=== PATIENT | female | born 1950 | race Hispanic/Latino ===

== ENCOUNTER 2016-10-03 15:05 | Inpatient (IN) | payer MEDICAID, MEDICARE ==
--- NOTE | 2016-10-03 15:33 | Emergency Department Report ---
HPI - General Time Seen by Provider: 10/03/16 15:16 - HPI HPI: This is a 66-year-old Afro-[place] female presents to the emergency department by EMS from [facility] with complaint of possible stroke. Patient is been having right-sided weakness that she says has been going on since this morning around 8 AM. It started mostly with the right lower extremity but since that time she has had almost complete right-sided paralysis. Patient has a past medical history of hypertension, diabetes and schizophrenia. She is currently awake and alert, able 3. She didn't receive anything and did not take anything for symptoms prior to presentation. No recent travel. She denies any headache, vision change, chest pain, shortness of breath or any slurred speech. ED Past Medical Hx - Past Medical History Hx Hypertension: Yes Hx Heart Attack/AMI: No Hx Congestive Heart Failure: No Hx Diabetes: No Hx Psychiatric Treatment: Yes (schizophrenia per EMS) Hx Asthma: No Hx COPD: No Hx HIV: No - Surgical History Additional Surgical History: BRANDIE - Social History Smoking Status: Never Smoker - Medications Home Medications: Home Medications Medication Instructions Recorded Confirmed Last Taken Type Benztropine [Cogentin] 1 mg PO BID tablet 12/19/15 10/03/16 Unknown Rx Acetaminophen [Tylenol] 650 mg PO Q4HR PRN 10/03/16 10/03/16 Unknown History Ibuprofen [Motrin] 600 mg PO Q8H PRN 10/03/16 10/03/16 Unknown History Magnesium Hydroxide [[place]' 30 ml PO Q24H PRN 10/03/16 10/03/16 Unknown History Milk of Magnesia] Novolin R 1 unit SQ 1XW 10/03/16 10/03/16 Unknown History Zolpidem [Ambien] 10 mg PO QHS 10/03/16 10/03/16 Unknown History fluPHENAZine DECANOATE 37.5 mg IM Q14D 10/03/16 10/03/16 Unknown History [fluPHENAZine Decanoate] metFORMIN [Glucophage] 500 mg PO QDAY 10/03/16 10/03/16 Unknown History traMADol [Ultram] 50 mg PO Q6HR PRN 10/03/16 10/03/16 Unknown History ED Review of Systems ROS: Stated complaint: POSSIBLE CVA Other details as noted in HPI Comment: All other systems reviewed and negative Constitutional: weakness. denies: chills, fever Eyes: denies: eye pain, eye discharge, vision change ENT: denies: ear pain, throat pain Respiratory: denies: cough, shortness of breath, wheezing Cardiovascular: denies: chest pain, palpitations Gastrointestinal: denies: abdominal pain, nausea, diarrhea Genitourinary: denies: urgency, dysuria, discharge Musculoskeletal: denies: back pain, joint swelling, arthralgia Skin: denies: rash, lesions Neurological: denies: headache, weakness, paresthesias Physical Exam - Physical Exam Physical Exam: GENERAL: The patient is well-developed well-nourished. HEENT: Normocephalic. Atraumatic. Extraocular motions are intact. Patient has moist mucous membranes. Pupils equal reactive to light bilaterally. No nystagmus. No facial symmetry. Tongue is midline. NECK: Supple. Trachea is midline. CHEST/LUNGS: Clear to auscultation. There is no respiratory distress noted. HEART/CARDIOVASCULAR: Regular. There is no tachycardia. There is no gallop rub or murmur. ABDOMEN: Abdomen is soft, nontender. Patient has normal bowel sounds. There is no abdominal distention. SKIN: There is no rash. There is no edema. There is no diaphoresis. NEURO: The patient is awake, alert, and oriented. The patient is cooperative. There are no sensory deficits. Patient has right-sided hemiparesis. The patient has normal speech. MUSCULOSKELETAL: There is no tenderness or deformity. Radial pulse +2 over 4 bilaterally. Cap refill less than 2 seconds. There is no evidence of acute injury. ED Course - Consultations Consultation #1: We spoke with the telemedicine neurologist regarding this patient's presentation. Based on the patient being awake and alert and saying that her symptoms began at 8 AM this morning, she does not fall into any TPA window and therefore he recommends no TPA administration but instead just a "stroke workup " and admission to the hospital. 10/03/16 15:57 ED Medical Decision Making - Lab Data Result diagrams: 10/03/16 15:23 10/03/16 15:23 - EKG Data -: EKG Interpreted by Me EKG shows normal: sinus rhythm, axis, intervals, QRS complexes, ST-T waves ( nonspecific ST-T changes) Rate: normal - EKG Data When compared to previous EKG there are: previous EKG unavailable Interpretation: nonspecific ST-T wave gayle - Radiology Data Radiology results: report reviewed, image reviewed interpreted by me: Chest x-ray did not show any acute process. Heart is normal shape and size. No effusions. No pneumothorax. No signs of pneumonia seen. CT of the head does not show any acute process including no hemorrhage, mass, shift, diffuse edema or skull fracture. - Medical Decision Making 66-year-old female presents with right-sided weakness and hemiparesis that started earlier this morning. While the facility said to EMS that the symptoms began just prior to presentation, the patient is currently awake and alert and appropriate and says that she knows that started earlier this morning. For that reason, after speaking with the telemedicine neurologist, the patient is not a TPA candidate. However she does need admission for further evaluation and probable MRI and carotid ultrasounds. Patient's labs are mostly unremarkable other than some mild hyperglycemia and certainly do not show the etiology of the patient's symptoms. Patient will be admitted to the hospital and has been accepted by Dr. Nicholas. - Differential Diagnosis CVA, TIA, brain bleed, metabolic syndrome Critical Care Time: No Critical care attestation.: If time is entered above; I have spent that time in minutes in the direct care of this critically ill patient, excluding procedure time. ED Disposition Clinical Impression: Accelerated hypertension CVA (cerebral vascular accident) Qualifiers: CVA mechanism: unspecified Qualified Code(s): I63.9 - Cerebral infarction, unspecified Diabetes Qualifiers: Diabetes mellitus type: type 2 Diabetes mellitus complication status: with hyperglycemia Disposition: OP ADMITTED IP TO THIS HOSP Is pt being admited?: Yes Condition: Fair Time of Disposition: 18:35
--- NOTE | 2016-10-03 15:43 | Cat Scan Report ---
Cranial CT without contrast. History: Acute stroke protocol. Findings: Comparison is made to the previous study on December 07, 2015. There is no evidence of acute hemorrhage or infarct. Involutional changes are stable. The ventricles are slightly prominent but unchanged. There are no masses or extra-axial collections. The posterior fossa is unremarkable. The calvarium is intact. Impression: No acute findings or interval changes since December 07, 2015. Comment: These findings were given by telephone to the emergency room physician at 3:40 PM on October 03, 2016.
[2016-10-03 15:45] LABS: Basophils % (Auto) 1.4 % (0.0-1.8); Eosinophils % (Auto) 2.5 % (0.0-4.3); Hematocrit 38.9 % (30.3-42.9); Hemoglobin 12.3 gm/dl (10.1-14.3); Mean Corpuscular HGB Conc 32 % (30-34); Mean Corpuscular Volume 82 fl (79-97); Platelet Count 391 K/mm3 (140-440); Red Blood Count 4.76 M/mm3 (3.65-5.03); Red Cell Distribution Width 16.9 % (13.2-15.2); White Blood Count 9.1 K/mm3 (4.5-11.0)
[2016-10-03 15:48] LABS: Mean Corpuscular Hemoglobin 26 pg (28-32)
--- NOTE | 2016-10-03 15:59 | Admit Criteria Form ---
Admission Criteria Documentation: STROKE: ISCHEMIC Clinical Indications for Admission to Inpatient Care (Place 'X' for any and all applicable criteria): Admission is indicated for ANY ONE of the following(1)(2)(3)(4): [X ]I. Acute stroke Extended stay beyond goal length of stay may be needed for(1)(2) [ ]a) Major deficit or clinical deterioration [ ]b) Hospital-acquired infection (eg, urinary tract infection, pneumonia) [ ]c) Embolic cause of stroke [ ]d) Venous thromboembolism(9) [ ]e) Seizures [ ]f) Bleeding (eg, cerebral) [ ]g) Increased intracranial pressure [ ]h) Comorbidities [ ]i) Surgical intervention The original [facility] content created by [employer] has been revised. The portions of the content which have been revised are identified through the use of italic text or in bold, and [facility] has neither reviewed nor approved the modified material. All other unmodified content is copyright [facility]. Please see references footnoted in the original [facility] edition 2016 Admission Criteria Met: Yes
[2016-10-03 16:01] LABS: INR 0.9 (0.87-1.13)
[2016-10-03 16:02] LABS: Partial Thromboplastin Time 32.5 Sec. (24.2-36.6)
--- NOTE | 2016-10-03 16:15 | History and Physical Report ---
History of Present Illness Chief complaint: I cant talk right History of present illness: 66 YO Female NHR at [facility] with HTN, DM, Schizophrenia, Debility presents to ED for evaluation. Pt states that she has experienced right -sided weakness that was present when she awoke around 0800 hrs. Pt states that she cannot talk like she normally does. Pt denies fever, Chills, CP, Palpitation, Trauma, NVD, fall, syncope, seizure, headache, recent ill contacts. Past History Past Medical History: diabetes, hyperthyroidism Past Surgical History: No surgical history, Other (reviewed) Social history: single. denies: smoking, alcohol abuse, prescription drug abuse Family history: diabetes, hypertension Medications and Allergies Allergies Allergy/AdvReac Type Severity Reaction Status Date / Time No Known Allergies Allergy Unverified 10/03/16 15:16 Home Medications Medication Instructions Recorded Confirmed Last Taken Type Benztropine [Cogentin] 1 mg PO BID tablet 12/19/15 10/03/16 Unknown Rx Acetaminophen [Tylenol] 650 mg PO Q4HR PRN 10/03/16 10/03/16 Unknown History Ibuprofen [Motrin] 600 mg PO Q8H PRN 10/03/16 10/03/16 Unknown History Magnesium Hydroxide [[place]' 30 ml PO Q24H PRN 10/03/16 10/03/16 Unknown History Milk of Magnesia] Novolin R 1 unit SQ 1XW 10/03/16 Unknown History Zolpidem [Ambien] 10 mg PO QHS 10/03/16 10/03/16 Unknown History fluPHENAZine DECANOATE 37.5 mg IM Q14D 10/03/16 10/03/16 Unknown History [fluPHENAZine Decanoate] metFORMIN [Glucophage] 500 mg PO QDAY 10/03/16 10/03/16 Unknown History traMADol [Ultram] 50 mg PO Q6HR PRN 10/03/16 10/03/16 Unknown History Review of Systems All systems: negative Neurological: weakness, gait dysfunction, motor disturbance Exam - Constitutional Vitals: Temp Pulse Resp BP Pulse Ox 97.4 F L 83 18 207/99 10/03/16 15:16 10/03/16 15:16 10/03/16 15:16 10/03/16 15:16 General appearance: Present: mild distress - EENT Eyes: Present: PERRL ENT: hearing intact, clear oral mucosa - Neck Neck: Present: supple, normal ROM - Respiratory Respiratory effort: normal Respiratory: bilateral: CTA - Cardiovascular Heart Sounds: Present: S1 & S2. Absent: rub, click - Extremities Extremities: pulses symmetrical, No edema Peripheral Pulses: within normal limits - Abdominal General gastrointestinal: Present: soft, non-tender, non-distended, normal bowel sounds Female genitourinary: Present: normal - Integumentary Integumentary: Present: clear, warm, dry - Musculoskeletal Musculoskeletal: right sided weakness - Psychiatric Psychiatric: cooperative - Neurologic Neurologic: CNII-XII intact, no focal deficits, no moves all extremities, no gait normal Results - Labs CBC & Chem 7: 10/03/16 15:23 10/03/16 15:23 Labs: Abnormal lab results 10/03/16 10/03/16 Range/Units 15:23 15:23 MCH 26 L (28-32) pg RDW 16.9 H (13.2-15.2) % [place] % (Auto) 9.7 H (0.0-7.3) % [place] # 0.9 H (0.0-0.8) K/mm3 PT 12.1 L (12.2-14.9) Sec. Assessment and Plan - Patient Problems (1) CVA (cerebral vascular accident) Current Visit: Yes Status: Acute Qualifiers: CVA mechanism: C Precerebral and cerebral artery: P Laterality of affected vessel: L Plan to address problem: Stroke protocol: Antiplatelet therapy, statin, MRI, MRA, Echo, carotid doppler, PT/OT/Speech therapy (2) Accelerated hypertension Current Visit: Yes Status: Acute Plan to address problem: monitor bp q shift, continue current therapy, goal systolic overnight 160-185. (3) Diabetes Current Visit: No Status: Chronic Qualifiers: Diabetes mellitus type: type 2 Diabetes mellitus complication status: D Diabetes mellitus complication detail: D Diabetic retinopathy severity: D Proliferative retinopathy type: P Diabetes mellitus macular edema: D Diabetes mellitus senior living insulin use: D Laterality: L Chronic kidney disease stage: C Plan to address problem: ADA diet, insulin, accu check (4) Physical deconditioning Current Visit: No Status: Chronic Plan to address problem: Pt consulted, (5) Schizophrenia Current Visit: No Status: Chronic Qualifiers: Schizophrenia type: unspecified Qualified Code(s): F20.9 - Schizophrenia, unspecified Plan to address problem: curently stable, continue current therapy (6) DVT prophylaxis Current Visit: No Status: Acute
[2016-10-03] MEDS ORDERED: PHENERGAN PR PRN (16:18)
[2016-10-03] MEDS ORDERED: TYLENOL PO PRN ×3 (16:18→17:08)
[2016-10-03] MEDS ORDERED: SODIUM CHLORIDE FLUSH SYRINGE 10 ML IV PRN (16:18)
[2016-10-03] MEDS ORDERED: MILK OF MAGNESIA PO PRN ×3 (16:18→17:08)
[2016-10-03] MEDS ORDERED: DULCOLAX PR PRN ×2 (16:18)
[2016-10-03] MEDS ORDERED: REGLAN PO PRN (16:18)
[2016-10-03] MEDS ORDERED: ZOFRAN IV PRN ×2 (16:18)
[2016-10-03 16:27] LABS: Creatine Kinase MB 2.6 ng/mL (0.0-4.0)
[2016-10-03 16:29] LABS: Alanine Aminotransferase 16 units/L (7-56); Albumin 3.8 g/dL (3.9-5); Alkaline Phosphatase 156 units/L (35-129); Anion Gap 19 mmol/L; BUN/Creatinine Ratio 11.11; Bilirubin,Total < 0.2 mg/dL (0.1-1.2); Blood Urea Nitrogen 10 mg/dL (7-17); Carbon Dioxide 24 mmol/L (22-30); Creatine Kinase 93 units/L (30-135); Glucose 204 mg/dL (65-100); Potassium 4.2 mmol/L (3.6-5.0); Sodium 141 mmol/L (137-145); Total Protein 7.6 g/dL (6.3-8.2)
[2016-10-03 16:31] LABS: Urine Drugs of Abuse Note Disclamer
[2016-10-03 16:39] LABS: Bilirubin,Urine NEG (Negative); Blood,Urine NEG (Negative); Ketones,Urine NEG (Negative); Leukocyte Esterase,Urine NEG (Negative); Nitrite,Urine NEG (Negative); Protein,Urine <15 mg/dL mg/dL (Negative); Urobilinogen,Urine < 2.0 mg/dL (<2.0)
[2016-10-03] MEDS ORDERED: PROLIXIN DECANOATE IM SCH (18:00)
[2016-10-03 19:14] LABS: Creatine Kinase MB 2.5 ng/mL (0.0-4.0)
[2016-10-03 19:15] LABS: Creatine Kinase 88 units/L (30-135)
[2016-10-03] MEDS: COGENTIN PO SCH (21:46)
[2016-10-03] MEDS: ZOCOR PO SCH (21:46)
[2016-10-03] MEDS: MOTRIN PO PRN (21:46)
[2016-10-03] MEDS: AMBIEN PO SCH (21:46)
[2016-10-03] MEDS: ULTRAM PO PRN (23:44)
--- NOTE | 2016-10-04 08:49 | XRay Report ---
AP CHEST: HISTORY: CVA AP view of the chest demonstrates a normal mediastinal and cardiac contour with clear lungs and normal bony and soft tissue structures. Bibasilar atelectatic changes have resolved since 11/20/15. IMPRESSION: Unremarkable AP chest.
[2016-10-04] MEDS: ASPIRIN PO SCH (09:13)
[2016-10-04] MEDS: PLAVIX PO SCH (09:13)
--- NOTE | 2016-10-04 12:53 | Progress Note ---
Assessment and Plan Assessment and plan: 66 years old female with hypertension, diabetes, psychiatric disorder brought to ER from [facility] for right-sided weakness 1. CVA suspected CT head showed no acute findings or interval changes ECHO normal Carotid Doppler with < 50% stenosis right, 50-75% left Brain MRI/A obtained, results pending Started on aspirin and statin PT/OT/ST 2. Hyperlipidemia LDL 190 Will increase Zocor dose 3. HTN BP 130-160s Will monitor for now and allow permissive hypertension in case of stroke 4. DM Hemoglobin A1c 8.3 Accu-Cheks and SSI Will discuss long acting insulin need 5. Schizophrenia Continue home meds 5. Debility Physical therapy to evaluate and assess needs 6. DVT/GI prophylaxis History Interval history: c/o bilat leg pain , inability to walk properly and need of a wheelchair Hospitalist Physical - Physical exam Narrative exam: - Constitutional Vitals: Temp Pulse Resp BP Pulse Ox 98.1 F 92 H 20 168/92 99 10/04/16 06:28 10/04/16 10:00 10/04/16 06:28 10/04/16 06:28 10/04/16 10:00 General appearance: Present: no acute distress - EENT Eyes: Present: PERRL, EOM intact. Absent: scleral icterus, conjunctival injection ENT: clear oral mucosa, edentulous - Neck Neck: Present: supple, normal ROM. Absent: masses or JVD - Respiratory Respiratory effort: normal Respiratory: bilateral: CTA, negative: rhonchi, wheezing - Cardiovascular Rhythm: regular Heart Sounds: Present: S1 & S2. Absent: systolic murmur - Extremities Extremities: no ischemia - Abdominal General gastrointestinal: soft, non-tender, non-distended, normal bowel sounds - Integumentary Integumentary: Present: warm, dry. Absent: jaundice, rash - Neurologic Neurologic: moves all extremities - Constitutional Vitals: Temp Pulse Resp BP Pulse Ox 98.1 F 92 H 20 168/92 99 10/04/16 06:28 10/04/16 10:00 10/04/16 06:28 10/04/16 06:28 10/04/16 01:26 Results - Labs CBC & Chem 7: 10/03/16 15:23 10/03/16 15:23 Labs: Laboratory Last Values WBC 9.1 K/mm3 (4.5-11.0) 10/03/16 15: RBC 4.76 M/mm3 (3.65-5.03) 10/03/16 15: Hgb 12.3 gm/dl (10.1-14.3) 10/03/16 15: Hct 38.9 % (30.3-42.9) 10/03/16 15: MCV 82 fl (79-97) 10/03/16: MCH 26 pg (28-32) L 10/03/16: MCHC 32 % (30-34) 10/03/16: RDW 16.9 % (13.2-15.2) H 10/03/16: Plt Count 391 K/mm3 (140-440) 10/03/16: Lymph % (Auto) 27.4 % (13.4-35.0) 10/03/16 15: [place] % (Auto) 9.7 % (0.0-7.3) H 10/03/16: Eos % (Auto) 2.5 % (0.0-4.3) 10/03/16: Baso % (Auto) 1.4 % (0.0-1.8) 10/03/16: Lymph # 2.5 K/mm3 (1.2-5.4) 10/03/16 15: [place] # 0.9 K/mm3 (0.0-0.8) H 10/03/16 15: Eos # 0.2 K/mm3 (0.0-0.4) 10/03/16: Baso # 0.1 K/mm3 (0.0-0.1) 10/03/16: Seg Neutrophils % 59.0 % (40.0-70.0) 10/03/16: Seg Neutrophils # 5.4 K/mm3 (1.8-7.7) 10/03/16: PT 12.1 Sec. (12.2-14.9) L 10/03/16: INR 0.90 (0.87-1.13) 10/03/16: APTT 32.5 Sec. (24.2-36.6) 04/13/17 15:23 Thrombin Time 16.9 Sec. (15.1-19.6) 10/03/16 15:23 Sodium 141 mmol/L (137-145) 10/03/16 15:23 Potassium 4.2 mmol/L (3.6-5.0) 10/03/16 15:23 Chloride 102.0 mmol/L (98-107) 10/03/16 15:23 Carbon Dioxide 24 mmol/L (22-30) 10/03/16 15:23 Anion Gap 19 mmol/L 10/03/16 15:23 BUN 10 mg/dL (7-17) 10/03/16 15:23 Creatinine 0.9 mg/dL (0.7-1.2) 10/03/16 15:23 Estimated GFR > 60 ml/min 10/03/16 15:23 BUN/Creatinine Ratio 11.11 % 10/03/16 15:23 Glucose 204 mg/dL (65-100) H 10/03/16 15:23 POC Glucose 139 (70-105) H 10/04/16 07:47 Hemoglobin A1c 8.3 % (4-6) H 10/03/16 15:20 Calcium 9.0 mg/dL (8.4-10.2) 10/03/16 15:23 Total Bilirubin < 0.2 mg/dL (0.1-1.2) 10/03/16 15:23 AST 17 units/L (5-40) 10/03/16 15:23 ALT 16 units/L (7-56) 10/03/16 15:23 Alkaline Phosphatase 156 units/L (35-129) H 10/03/16 15:23 Total Creatine Kinase 88 units/L (30-135) 10/03/16 18:36 CK-MB (CK-2) 2.5 ng/mL (0.0-4.0) 10/03/16 18:36 CK-MB (CK-2) Rel Index 2.8 (0-4) 10/03/16 18:36 Troponin T < 0.010 ng/mL (0.00-0.029) 10/03/16 18:36 Total Protein 7.6 g/dL (6.3-8.2) 10/03/16 15:23 Albumin 3.8 g/dL (3.9-5) L 10/03/16 15:23 Albumin/Globulin Ratio 1.0 % 10/03/16 15:23 Triglycerides 190 mg/dL (2-149) H 10/03/16 15:20 Cholesterol 276 mg/dL (50-199) H 10/03/16 15:20 LDL Cholesterol Direct 190 mg/dL (50-130) H 10/03/16 15:20 HDL Cholesterol 48 mg/dL (40-59) 10/03/16 15:20 Cholesterol/HDL Ratio 5.75 % 10/03/16 15:20 Urine Color Yellow (Yellow) 10/03/16 16:26 Urine Turbidity Clear (Clear) 10/03/16 16:26 Urine pH 6.0 (5.0-7.0) 10/03/16 16:26 Ur Specific [place] 1.016 (1.003-1.030) 10/03/16 16:26 Urine Protein <15 mg/dl mg/dL (Negative) 10/03/16 16:26 Urine Glucose (UA) Neg mg/dL (Negative) 10/03/16 16:26 Urine Ketones Neg mg/dL (Negative) 10/03/16 16:26 Urine Blood Neg (Negative) 10/03/16 16:26 Urine Nitrite Neg (Negative) 10/03/16 16:26 Urine Bilirubin Neg (Negative) 10/03/16 16:26 Urine Urobilinogen < 2.0 mg/dL (<2.0) 10/03/16 16:26 Ur Leukocyte Esterase Neg (Negative) 10/03/16 16:26 Urine WBC (Auto) 1.0 /HPF (0.0-6.0) 10/03/16 16:26 Urine RBC (Auto) 2.0 /HPF (0.0-6.0) 10/03/16 16:26 Urine Opiates Screen Presumptive negative 10/03/16 16:26 Urine Methadone Screen Presumptive negative 10/03/16 16:26 Ur Barbiturates Screen Presumptive negative 10/03/16 16:26 Ur Phencyclidine Scrn Presumptive negative 10/03/16 16:26 Ur Amphetamines Screen Presumptive negative 10/03/16 16:26 U Benzodiazepines Scrn Presumptive negative 10/03/16 16:26 Urine Cocaine Screen Presumptive negative 10/03/16 16:26 U Marijuana (THC) Screen Presumptive negative 10/03/16 16:26 Drugs of Abuse Note Disclamer 10/03/16 16:26 Blood Type O POSITIVE 10/03/16 15:23 Antibody Screen Negative 10/03/16 15:23
--- NOTE | 2016-10-04 13:59 | Magnetic Resonance Report ---
MR scan of brain: History: Stroke. Technique: Multiplanar, multisequence images were obtained without contrast injection. Findings: 4 mm focal area of restricted diffusion noted in the left basal ganglia adjacent to thalamus. 2 mm focal area of restricted diffusion noted in the right posterior temporal region. No evidence of hemorrhage. No extra-axial fluid collection. Normal brainstem and cerebellum. Normal sinuses and mastoid air cells. Impression: Focal area restricted diffusion in left basal ganglia and the right posterior temporal region suggestive acute ischemia. No evidence of hemorrhage.
--- NOTE | 2016-10-04 14:01 | Magnetic Resonance Report ---
MRA of brain: History: Stroke. Findings: The vessels of [place] are well visualized and patent. Mild atherosclerotic changes are noted in the right and left middle cerebral and the posterior cerebral vessels. No significant stenoses. No evidence of occlusion or aneurysm. No evidence of dissection. Codominant vertebral arteries with normal basilar artery. Impression: No evidence of stenosis or occlusion or aneurysm.
[2016-10-04] MEDS: COGENTIN PO SCH ×3 (14:51→21:43)
[2016-10-04] MEDS: ULTRAM PO PRN ×2 (15:16→21:42)
--- NOTE | 2016-10-04 17:37 | Progress Note ---
Assessment and Plan Assessment and plan: 66 years old female with hypertension, diabetes, psychiatric disorder brought to ER from [facility] for right-sided weakness 1. CVA suspected CT head showed no acute findings or interval changes ECHO normal Carotid Doppler with < 50% stenosis right, 50-75% left Brain MRI/A obtained, results pending Started on aspirin and statin PT/OT/ST 2. Hyperlipidemia LDL 190 Will increase Zocor dose 3. HTN BP 130-160s Will monitor for now and allow permissive hypertension in case of stroke 4. DM Hemoglobin A1c 8.3 Accu-Cheks and SSI Will discuss long acting insulin need 5. Schizophrenia Continue home meds 5. Debility Physical therapy to evaluate and assess needs 6. DVT/GI prophylaxis History Interval history: c/o bilat leg pain , inability to walk properly and need of a wheelchair Hospitalist Physical - Constitutional Vitals: Temp Pulse Resp BP Pulse Ox 98.1 F 92 H 20 168/92 99 10/04/16 06:28 10/04/16 10:00 10/04/16 06:28 10/04/16 06:28 10/04/16 10:00 General appearance: Present: no acute distress - EENT Eyes: Present: PERRL, EOM intact. Absent: scleral icterus, conjunctival injection ENT: clear oral mucosa, edentulous - Neck Neck: Present: supple, normal ROM. Absent: masses or JVD - Respiratory Respiratory effort: normal Respiratory: bilateral: CTA, negative: rhonchi, wheezing - Cardiovascular Rhythm: regular Heart Sounds: Present: S1 & S2. Absent: systolic murmur - Extremities Extremities: no ischemia - Abdominal General gastrointestinal: soft, non-tender, non-distended, normal bowel sounds - Integumentary Integumentary: Present: warm, dry. Absent: jaundice, rash - Neurologic Neurologic: moves all extremities Results - Labs CBC & Chem 7: 10/03/16 15:23 10/03/16 15:23 Labs: Laboratory Last Values WBC 9.1 K/mm3 (4.5-11.0) 10/03/16 15:23 RBC 4.76 M/mm3 (3.65-5.03) 10/03/16 15:23 Hgb 12.3 gm/dl (10.1-14.3) 10/03/16 15:23 Hct 38.9 % (30.3-42.9) 10/03/16 15: MCV 82 fl (79-97) 10/03/16 15: MCH 26 pg (28-32) L 10/03/16: MCHC 32 % (30-34) 10/03/16 15: RDW 16.9 % (13.2-15.2) H 10/03/16 15: Plt Count 391 K/mm3 (140-440) 10/03/16 15: Lymph % (Auto) 27.4 % (13.4-35.0) 10/03/16 15: [place] % (Auto) 9.7 % (0.0-7.3) H 10/03/16: Eos % (Auto) 2.5 % (0.0-4.3) 10/03/16: Baso % (Auto) 1.4 % (0.0-1.8) 10/03/16: Lymph # 2.5 K/mm3 (1.2-5.4) 10/03/16: [place] # 0.9 K/mm3 (0.0-0.8) H 10/03/16 15: Eos # 0.2 K/mm3 (0.0-0.4) 10/03/16: Baso # 0.1 K/mm3 (0.0-0.1) 10/03/16 15: Seg Neutrophils % 59.0 % (40.0-70.0) 10/03/16: Seg Neutrophils # 5.4 K/mm3 (1.8-7.7) 10/03/16: PT 12.1 Sec. (12.2-14.9) L 10/03/16: INR 0.90 (0.87-1.13) 10/03/16: APTT 32.5 Sec. (24.2-36.6) 10/03/16: Thrombin Time 16.9 Sec. (15.1-19.6) 10/03/16 15: Sodium 141 mmol/L (137-145) 10/03/16: Potassium 4.2 mmol/L (3.6-5.0) 10/03/16:23 Chloride 102.0 mmol/L (98-107) 10/03/16 15:23 Carbon Dioxide 24 mmol/L (22-30) 10/03/16 15:23 Anion Gap 19 mmol/L 10/03/16 15:23 BUN 10 mg/dL (7-17) 10/03/16 15:23 Creatinine 0.9 mg/dL (0.7-1.2) 10/03/16 15:23 Estimated GFR > 60 ml/min 10/03/16 15:23 BUN/Creatinine Ratio 11.11 % 10/03/16 15:23 Glucose 204 mg/dL (65-100) H 10/03/16 15:23 POC Glucose 139 (70-105) H 10/04/16 07:47 Hemoglobin A1c 8.3 % (4-6) H 10/03/16 15:20 Calcium 9.0 mg/dL (8.4-10.2) 10/03/16 15:23 Total Bilirubin < 0.2 mg/dL (0.1-1.2) 10/03/16 15:23 AST 17 units/L (5-40) 10/03/16 15:23 ALT 16 units/L (7-56) 10/03/16 15:23 Alkaline Phosphatase 156 units/L (35-129) H 10/03/16 15:23 Total Creatine Kinase 88 units/L (30-135) 10/03/16 18:36 CK-MB (CK-2) 2.5 ng/mL (0.0-4.0) 10/03/16 18:36 CK-MB (CK-2) Rel Index 2.8 (0-4) 10/03/16 18:36 Troponin T < 0.010 ng/mL (0.00-0.029) 10/03/16 18:36 Total Protein 7.6 g/dL (6.3-8.2) 10/03/16 15:23 Albumin 3.8 g/dL (3.9-5) L 10/03/16 15:23 Albumin/Globulin Ratio 1.0 % 10/03/16 15:23 Triglycerides 190 mg/dL (2-149) H 10/03/16 15:20 Cholesterol 276 mg/dL (50-199) H 10/03/16 15:20 LDL Cholesterol Direct 190 mg/dL (50-130) H 10/03/16 15:20 HDL Cholesterol 48 mg/dL (40-59) 10/03/16 15:20 Cholesterol/HDL Ratio 5.75 % 10/03/16 15:20 Urine Color Yellow (Yellow) 10/03/16 16:26 Urine Turbidity Clear (Clear) 10/03/16 16:26 Urine pH 6.0 (5.0-7.0) 10/03/16 16:26 Ur Specific [place] 1.016 (1.003-1.030) 10/03/16 16:26 Urine Protein <15 mg/dl mg/dL (Negative) 10/03/16 16:26 Urine Glucose (UA) Neg mg/dL (Negative) 10/03/16 16:26 Urine Ketones Neg mg/dL (Negative) 10/03/16 16:26 Urine Blood Neg (Negative) 10/03/16 16:26 Urine Nitrite Neg (Negative) 10/03/16 16:26 Urine Bilirubin Neg (Negative) 10/03/16 16:26 Urine Urobilinogen < 2.0 mg/dL (<2.0) 10/03/16 16:26 Ur Leukocyte Esterase Neg (Negative) 10/03/16 16:26 Urine WBC (Auto) 1.0 /HPF (0.0-6.0) 10/03/16 16:26 Urine RBC (Auto) 2.0 /HPF (0.0-6.0) 10/03/16 16:26 Urine Opiates Screen Presumptive negative 10/03/16 16:26 Urine Methadone Screen Presumptive negative 10/03/16 16:26 Ur Barbiturates Screen Presumptive negative 10/03/16 16:26 Ur Phencyclidine Scrn Presumptive negative 10/03/16 16:26 Ur Amphetamines Screen Presumptive negative 10/03/16 16:26 U Benzodiazepines Scrn Presumptive negative 10/03/16 16:26 Urine Cocaine Screen Presumptive negative 10/03/16 16:26 U Marijuana (THC) Screen Presumptive negative 10/03/16 16:26 Drugs of Abuse Note Disclamer 10/03/16 16:26 Blood Type O POSITIVE 10/03/16 15:23 Antibody Screen Negative 10/03/16 15:23 - Imaging and Cardiology Chest x-ray: image reviewed CT Scan - head: report reviewed
[2016-10-04] MEDS: ZOCOR PO SCH (21:42)
[2016-10-04] MEDS: AMBIEN PO SCH (21:42)
[2016-10-04] MEDS: APRESOLINE IV PRN (21:43)
[2016-10-05] MEDS: PLAVIX PO SCH (09:32)
[2016-10-05] MEDS: ASPIRIN PO SCH (09:32)
[2016-10-05] MEDS: ULTRAM PO PRN (09:32)
--- NOTE | 2016-10-05 13:58 | Progress Note ---
Assessment and Plan 66 years old female with hypertension, diabetes, psychiatric disorder brought to ER from [facility] for right-sided weakness 1. Acute CVA CT head showed no acute findings or interval changes ECHO nresult pending Carotid Doppler with < 50% stenosis right, 50-75% left Brain MRI/A obtained, results showed left basal ganglia and rt posterior temporal region infract cont on aspirin and statin PT/OT/ST consult neuro 2. Hyperlipidemia LDL 190 Will increase Zocor dose 3. HTN BP 130-160s Will monitor for now and allow permissive hypertension in case of stroke 4. DM Hemoglobin A1c 8.3 Accu-Cheks and SSI 5. Schizophrenia Continue home meds 5. Debility Physical therapy to evaluate and assess needs 6. DVT/GI prophylaxis Subjective Date of service: 10/05/16 Interval history: Pt seen and examined, c/o Rt sided weakness, UE more than LE neuro eval pending Objective - Constitutional Vitals: Vital Signs - 12hr 10/05/16 10/05/16 10/05/16 04:45 10:00 10:58 Temperature 98.2 F 98.8 F Pulse Rate 87 Pulse Rate [ 98 H 91 H Right Radial] Respiratory 20 16 Rate Blood Pressure 136/67 159/86 [Right Radial Artery] O2 Sat by Pulse 97 97 98 Oximetry General appearance: Present: no acute distress, well-nourished - EENT Eyes: PERRL, EOM intact ENT: hearing intact, clear oral mucosa Ears: bilateral: normal - Neck Neck: supple, normal ROM - Respiratory Respiratory effort: normal Respiratory: bilateral: CTA - Cardiovascular Rhythm: regular Heart Sounds: Present: S1 & S2. Absent: gallop, rub Extremities: pulses intact, No edema, normal color, Full ROM - Gastrointestinal General gastrointestinal: Present: soft, non-tender, non-distended, normal bowel sounds - Integumentary Integumentary: clear, warm, dry - Musculoskeletal Musculoskeletal: 1, strength equal bilaterally - Neurologic Neurologic: moves all extremities - Psychiatric Psychiatric: memory intact, appropriate mood/affect, intact judgment & insight - Labs CBC & Chem 7: 10/03/16 15:23 10/03/16 15:23 Labs: Abnormal lab results 10/04/16 10/04/16 10/05/16 Range/Units 16:22 21:50 07:49 POC Glucose 179 H 209 H 126 H (70-105)
[2016-10-05] MEDS: COGENTIN PO SCH ×2 (14:39→21:39)
[2016-10-05] MEDS: ZOCOR PO SCH (21:39)
[2016-10-05] MEDS: MOTRIN PO PRN (21:39)
[2016-10-05] MEDS: AMBIEN PO SCH (21:39)
[2016-10-06] MEDS: ASPIRIN PO SCH (11:57)
[2016-10-06] MEDS: COGENTIN PO SCH ×2 (11:57→22:40)
[2016-10-06] MEDS: PLAVIX PO SCH (11:58)
--- NOTE | 2016-10-06 16:18 | Progress Note ---
Assessment and Plan 66 years old female with hypertension, diabetes, psychiatric disorder brought to ER from [facility] for right-sided weakness 1. Acute CVA CT head showed no acute findings or interval changes ECHO nresult pending Carotid Doppler with < 50% stenosis right, 50-75% left Brain MRI/A obtained, results showed left basal ganglia and rt posterior temporal region infract cont on aspirin and statin PT/OT/ST, Neuro consult pending 2. Hyperlipidemia LDL 190 cont Zocor dose 3. HTN will resume home meds prn hydralazine iv 4. DM Hemoglobin A1c 8.3 Accu-Cheks and SSI 5. Schizophrenia Continue home meds 5. Debility Physical therapy to evaluate and assess needs 6. DVT/GI prophylaxis Subjective Date of service: 10/06/16 Interval history: Pt seen and examined, c/o Rt sided weakness, UE more than LE neuro eval pending Objective - Constitutional Vitals: Vital Signs - 12hr 10/06/16 10/06/16 10/06/16 04:32 08:00 10:00 Temperature 98.5 F 98.1 F Pulse Rate 88 Pulse Rate [ 73 Left Radial] Pulse Rate [ 89 Right Radial] Respiratory 18 20 Rate Blood Pressure 149/77 [Left Arm] Blood Pressure 181/78 [Right Radial Artery] O2 Sat by Pulse 99 96 96 Oximetry 10/06/16 12:00 Temperature 97.7 F Pulse Rate Pulse Rate [ Left Radial] Pulse Rate [ 86 Right Radial] Respiratory 20 Rate Blood Pressure [Left Arm] Blood Pressure 166/78 [Right Radial Artery] O2 Sat by Pulse 100 Oximetry General appearance: Present: no acute distress, well-nourished - EENT Eyes: PERRL, EOM intact ENT: hearing intact, clear oral mucosa Ears: bilateral: normal - Neck Neck: supple, normal ROM - Respiratory Respiratory effort: normal Respiratory: bilateral: CTA - Cardiovascular Rhythm: regular Heart Sounds: Present: S1 & S2. Absent: gallop, rub Extremities: pulses intact, No edema, normal color, Full ROM - Gastrointestinal General gastrointestinal: Present: soft, non-tender, non-distended, normal bowel sounds - Integumentary Integumentary: clear, warm, dry - Musculoskeletal Musculoskeletal: 1, strength equal bilaterally - Neurologic Neurologic: moves all extremities - Psychiatric Psychiatric: cooperative - Labs CBC & Chem 7: 10/03/16 15:23 10/03/16 15:23 Labs: Abnormal lab results 10/05/16 Range/Units 12:49 POC Glucose 216 H (70-105) - Imaging and cardiology MRI - head: report reviewed
[2016-10-06] MEDS: MOTRIN PO PRN (22:40)
[2016-10-06] MEDS: AMBIEN PO SCH (22:40)
[2016-10-06] MEDS: ZOCOR PO SCH (22:40)
[2016-10-07] MEDS: APRESOLINE IV PRN (02:06)
[2016-10-07] MEDS ORDERED: APRESOLINE IV PRN (07:57)
[2016-10-07] MEDS: HCTZ PO SCH (10:48)
[2016-10-07] MEDS: PLAVIX PO SCH (10:48)
[2016-10-07] MEDS: COGENTIN PO SCH ×2 (10:48→22:14)
[2016-10-07] MEDS: ASPIRIN PO SCH (10:49)
[2016-10-07] MEDS: NORVASC PO SCH (10:49)
--- NOTE | 2016-10-07 11:21 | Consultation ---
History of Present Illness Consult date: 10/07/16 Requesting physician: JAMAAL WORLEY Reason for Consult: stroke Chief complaint: R leg weakness History of present illness: 66 YO F Hx HTN/DM2/Tob abuse p/w wake up 10/04 R leg weakness. Last well 10/03 @ 9 PM when she went to bed. Sx are constant. There are no clear aggravating, relieving or temporal factors. Severity was enough to cause inability to effectively ambulate. Past History Past Medical History: diabetes, hyperthyroidism Past Surgical History: No surgical history, Other (reviewed) Social history: single, smoking. denies: alcohol abuse, prescription drug abuse Family history: diabetes, hypertension Medications and Allergies Allergies Allergy/AdvReac Type Severity Reaction Status Date / Time tomato Allergy Itching Verified 10/03/16 17:53 Home Medications Medication Instructions Recorded Confirmed Last Taken Type Benztropine [Cogentin] 1 mg PO BID tablet 12/19/15 10/03/16 Unknown Rx Acetaminophen [Acetaminophen TAB] 650 mg PO Q4HR PRN 10/03/16 10/03/16 Unknown History Ibuprofen [Motrin 600 MG tab] 600 mg PO Q8H PRN 10/03/16 10/03/16 Unknown History Magnesium Hydroxide [[place]' 30 ml PO Q24H PRN 10/03/16 10/03/16 Unknown History Milk of Magnesia] Novolin R 1 unit SQ 1XW 10/03/16 10/03/16 Unknown History Zolpidem [Ambien] 10 mg PO QHS 10/03/16 10/03/16 Unknown History fluPHENAZine DECANOATE 37.5 mg IM Q14D 10/03/16 10/03/16 Unknown History [fluPHENAZine Decanoate] metFORMIN [Glucophage] 500 mg PO QDAY 10/03/16 10/03/16 Unknown History traMADol [Ultram 50 MG tab] 50 mg PO Q6HR PRN 10/03/16 10/03/16 Unknown History Aspirin [Aspirin TAB] 81 mg PO QDAY #30 tablet 10/07/16 Unknown Rx Hydrochlorothiazide [HCTZ] 25 mg PO QDAY #30 tablet 10/07/16 Unknown Rx Simvastatin [Zocor TAB] 40 mg PO QHS #30 tablet 10/07/16 Unknown Rx amLODIPine [Norvasc] 10 mg PO QDAY #30 tablet 10/07/16 Unknown Rx Active Meds: Active Medications Acetaminophen (Tylenol) 650 mg PO Q4H PRN PRN Reason: Pain, Mild (1-3) Acetaminophen (Tylenol) 650 mg PO Q4HR PRN PRN Reason: Pain Amlodipine Besylate (Norvasc) 10 mg PO QDAY [facility] Last Admin: 10/07/16 10:49 Dose: 10 mg Aspirin (Aspirin) 325 mg PO QDAY [facility] Last Admin: 10/07/16 10:49 Dose: 325 mg Benztropine Mesylate (Cogentin) 1 mg PO BID [facility] Last Admin: 10/07/16 10:48 Dose: 1 mg Bisacodyl (Dulcolax) 10 mg OR QDAY PRN PRN Reason: Constipation Clopidogrel Bisulfate (Plavix) 75 mg PO QDAY [facility] Last Admin: 10/07/16 10:48 Dose: 75 mg Fluphenazine Decanoate (Prolixin Decanoate) 37.5 mg IM Q14D [facility] Last Admin: 10/03/16 23:36 Dose: 37.5 mg Hydralazine HCl (Apresoline) 10 mg IV Q6H PRN PRN Reason: Keep SBP between 160-185 mm Hg Last Admin: 10/07/16 02:06 Dose: 10 mg Hydralazine HCl (Apresoline) 5 mg IV Q30MIN PRN PRN Reason: Hypertension Hydrochlorothiazide (Hctz) 25 mg PO QDAY [facility] Last Admin: 10/07/16 10:48 Dose: 25 mg Ibuprofen (Motrin) 600 mg PO Q8H PRN PRN Reason: Pain Last Admin: 10/06/16 22:40 Dose: 600 mg Magnesium Hydroxide (Milk Of Magnesia) 30 ml PO Q4H PRN PRN Reason: Constipation Magnesium Hydroxide (Milk Of Magnesia) 30 ml PO Q24H PRN PRN Reason: Constipation Metoclopramide HCl (Reglan) 10 mg PO Q6H PRN PRN Reason: Nausea And Vomiting Ondansetron HCl (Zofran) 4 mg IV Q8H PRN PRN Reason: N/V unrelieved by Reglan Last Admin: 10/04/16 23:23 Dose: 4 mg Promethazine HCl (Phenergan) 25 mg OR Q6H PRN PRN Reason: Nausea And Vomiting Simvastatin (Zocor) 40 mg PO QHS [facility] Last Admin: 10/06/16 22:40 Dose: 40 mg Sodium Chloride (Sodium Chloride Flush Syringe 10 Ml) 10 ml IV PRN PRN PRN Reason: LINE FLUSH Tramadol HCl (Ultram) 50 mg PO Q6HR PRN PRN Reason: Pain Last Admin: 10/05/16 09:32 Dose: 50 mg Zolpidem Tartrate (Ambien) 10 mg PO QHS [facility] Last Admin: 10/06/16 22:40 Dose: 10 mg Review of Systems All systems: negative Constitutional: fatigue, weakness Neurological: weakness, ataxia, lack of coordination, change in speech, balance difficulties, gait dysfunction, motor disturbance, no paralysis, no parathesias , no numbness, no tingling, no seizures, no syncope, no vertigo, no convulsions , no aphasia, no sensory deficit, no double vision, no paralysis Physical Examination - Vital Signs Vital Signs: Vital Signs Temp Pulse Resp BP 97.4 F L 83 18 207/99 10/03/16 15:16 10/03/16 15:16 10/03/16 15:16 10/03/16 15:16 - Constitutional General appearance: comfortable, older than stated age - EENT EENT: Present: ATNC, PERRL, mucous membranes moist, hearing intact, vision intact - Respiratory Respiratory: Present: chest non-tender, normal breath sounds, no respiratory distress - Cardiovascular Cardiovascular: Present: regular rate Extremities: Present: no peripheral edema bilatateraly, no clubbing, cyanosis, no inflammation, no ischemia or petechiae - Gastrointestinal Gastrointestinal: Present: normoactive bowel sounds, soft, non-distended - Integumentary Integumentary: Present: normal - Neurologic Cranial nerve examination: PERRL, EOMI, VFF, V1/V2/V3 grossly intact, face symmetric, tongue midline, intact, intact shoulder shrug, intact cough reflex, Intact Vestibulo-ocular r, intact corneal reflex, normal palatal elevation Speech examination: other (mild dysarthria) Sensorimotor examination: pronator drift (on R), hemiparesis (mild on R) Motor examination - right side: 4/5: hip flexors, knee extensors, dorsiflexion, toe extension (EHL), plantarflexion, 5/5: biceps (fine motor RUE weakness), triceps, wrist flexion, wrist extension, medical staffing coordinator Motor examination - left side: 5/5: biceps, triceps, wrist flexion, wrist extension, medical staffing coordinator, hip flexors, knee extensors, dorsiflexion, toe extension (EHL) , plantarflexion Detailed sensory examination: intact, light touch, temperature Reflex and gait examination: Babinski's sign (on R) Reflexes: 1+: ankle (on R), 3+: bicep, knee, tricep Cerebellar examination: ataxia (RUE/LE) - Musculoskeletal Musculoskeletal: Present: no fluid collection, no pain, normal range of motion - Psychiatric Psychiatric: Present: mood/affect appropriate, cooperative Results - Laboratory Findings CBC and BMP: 10/03/16 15:23 10/03/16 15:23 Abnormal Lab Findings: Abnormal Labs 10/04/16 10/04/16 10/04/16 07:47 16:22 21:50 POC Glucose 139 H 179 H 209 H 10/05/16 10/05/16 10/05/16 07:49 12:49 21:36 POC Glucose 126 H 216 H 142 H Assessment and Plan 66 YO F Hx HTN/DM2/Tob abuse p/w wake up ataxic hemiparesis syn confirmed on MRI Brain w/ L basal ganglia acute infarct.MRI Brain also read w/ R posterior temporal infarct but this is a T2 shine through artifact as no ADC correlate. MRA Head neg. LDL 190. 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 Plan and Recommendation: 1. No indication for pharmacologic thrombolysis with IV tPA or mechanical thrombectomy due to last known normal > 6 hrs from presentation. Current NIHSS 4. 2. Telemetry bed w/ Q4 hour neuro checks 3. Vascular Imaging: CTA Neck w/ Contrast 4. TTE to eval for possible cardiac source of embolism 5. Can lower MAPs by 10-15% daily to reach goal SBP 120-160 as permissive HTN period complete. 6. Secondary stroke prevention: ASA 325mg Daily x 1 then 81mg QDay & upgrade to full dose statin therapy (Crestor 20mg or 40mg OR Lipitor 40mg or 80mg Daily OR Zocor 40mg QDay) for goal LDL < 70. No firm indication at this point for therapeutic anticoagulation as pt has not had AFib captured on telemetry monitoring. 7. F/E/N: isotonic IVF prn, prn replete, bedside speech/swallow eval prior to PO intake. 8. DVT Prophylaxis 9. Stroke education, PT/OT/Speech Therapy consults, CM evaluation 10. For any changes in neurologic status, pls obtain STAT CTH w/o contrast and call neurology 11. If pt remains stable, no neurologic contraindication to discharge w/ outpt neuro follow up.
[2016-10-07] MEDS ORDERED: ASPIRIN PO SCH (13:25)
[2016-10-07] MEDS ORDERED: NACL ONE (14:43)
--- NOTE | 2016-10-07 15:55 | Progress Note ---
Assessment and Plan 66 years old female with hypertension, diabetes, psychiatric disorder brought to ER from [facility] for right-sided weakness 1. Acute CVA CT head showed no acute findings or interval changes ECHO showed preserved EF Carotid Doppler with < 50% stenosis right, 50-75% left Brain MRI/A obtained, results showed left basal ganglia and rt posterior temporal region infract cont on aspirin and statin cont PT/OT, Neuro recommended CTA brain 2. Hyperlipidemia LDL 190 cont Zocor dose 3. HTN will resume home meds prn hydralazine iv 4. DM Hemoglobin A1c 8.3 Accu-Cheks and SSI 5. Schizophrenia Continue home meds 5. Debility Physical therapy to evaluate and assess needs 6. DVT/GI prophylaxis Subjective Date of service: 10/07/16 Interval history: Pt seen and examined, c/o Rt sided weakness, UE more than LE neurology recommended CTA brain PT recommended MARIBEL Objective - Exam Narrative Exam: eneral appearance: Present: no acute distress, well-nourished - EENT Eyes: PERRL, EOM intact ENT: hearing intact, clear oral mucosa Ears: bilateral: normal - Neck Neck: supple, normal ROM - Respiratory Respiratory effort: normal Respiratory: bilateral: CTA - Cardiovascular Rhythm: regular Heart Sounds: Present: S1 & S2. Absent: gallop, rub Extremities: pulses intact, No edema, normal color, Full ROM - Gastrointestinal General gastrointestinal: Present: soft, non-tender, non-distended, normal bowel sounds - Integumentary Integumentary: clear, warm, dry - Musculoskeletal Musculoskeletal: 1, strength equal bilaterally - Neurologic Neurologic: moves all extremities - Psychiatric Psychiatric: cooperative - Constitutional Vitals: Vital Signs - 12hr 10/07/16 10/07/16 10/07/16 06:32 08:33 10:23 Temperature 98.6 F 98 F Pulse Rate [ 84 Apical] Pulse Rate [ 82 Right Radial] Respiratory 20 20 Rate Blood Pressure 104/54 133/62 [Right Radial Artery] O2 Sat by Pulse 96 94 97 Oximetry 10/07/16 12:45 Temperature 98.4 F Pulse Rate [ Apical] Pulse Rate [ 99 H Right Radial] Respiratory 97 H Rate Blood Pressure 183/84 [Right Radial Artery] O2 Sat by Pulse Oximetry - Labs CBC & Chem 7: 10/03/16 15:23 10/03/16 15:23 Labs: Abnormal lab results 10/05/16 Range/Units 21:36 POC Glucose 142 H (70-105)
[2016-10-07] MEDS: MOTRIN PO PRN (22:14)
[2016-10-07] MEDS: ZOCOR PO SCH (22:14)
[2016-10-07] MEDS: AMBIEN PO SCH (22:14)
--- NOTE | 2016-10-08 08:42 | Cat Scan Report ---
CTA NECK: HISTORY: Left internal carotid artery stenosis. TECHNIQUE: Helical CT following IV contrast. Sagittal and coronal reformatted images. 3D volume rendering technique. Stenosis was calculated using NASCET criteria. FINDINGS: The visualized aortic arch, innominate artery and proximal bilateral subclavian arteries are widely patent with less than 20% stenosis. Mild to moderate partially calcified plaques are identified at both carotid bifurcations. There is less than 20% stenosis throughout the bilateral CCAs, ICAs and ECAs. The vertebrobasilar system is widely patent with less than 20% stenosis. The right vertebral artery is dominant. IMPRESSION: Mild to moderate calcific plaques at the carotid bifurcations but no hemodynamically significant stenosis.
--- NOTE | 2016-10-08 09:02 | Discharge Summary ---
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 Discharge Diagnosis and management: 1. Acute CVA CT head showed no acute findings or interval changes ECHO showed preserved EF Carotid Doppler with < 50% stenosis right, 50-75% left Brain MRI/A obtained, results showed left basal ganglia and rt posterior temporal region infract cont on aspirin and statin cont PT/OT, Neuro recommended CTA brain without any acute change 2. Hyperlipidemia LDL 190, continue Zocor dose 3. HTN continue current BP meds (Amlodipine and HCTZ) 4. DM Hemoglobin A1c was 8.3 Accu-Cheks and continue insulin and po hypoglycemic meds 5. Schizophrenia Continue home meds 5. Debility Physical therapy to evaluate and assess needs Disposition: DC/TX SNF [facility] Time spent for discharge: 34 minutes Core Measure Documentation - Palliative Care Palliative Care/ Comfort Measures: Not Applicable - Core Measures Any of the following diagnoses?: stroke - Stroke Discharge Requirements Statin for LDL = or >70 mg/dl on DC: Yes Anticoag for atrial fib/atrial flutter: Not Applicable Antithrombotic for ischemic stroke: Yes Exam - Physical Exam Narrative exam: eneral appearance: Present: no acute distress, well-nourished - EENT Eyes: PERRL, EOM intact ENT: hearing intact, clear oral mucosa Ears: bilateral: normal - Neck Neck: supple, normal ROM - Respiratory Respiratory effort: normal Respiratory: bilateral: CTA - Cardiovascular Rhythm: regular Heart Sounds: Present: S1 & S2. Absent: gallop, rub Extremities: pulses intact, No edema, normal color, Full ROM - Gastrointestinal General gastrointestinal: Present: soft, non-tender, non-distended, normal bowel sounds - Integumentary Integumentary: clear, warm, dry - Musculoskeletal Musculoskeletal: 1, strength equal bilaterally - Neurologic Neurologic: moves all extremities - Psychiatric Psychiatric: cooperative - Constitutional Vitals: Temp Pulse Resp BP Pulse Ox 98.1 F 93 H 18 148/76 98 10/08/16 04:00 10/08/16 04:00 10/08/16 04:00 10/08/16 04:00 10/08/16 04:00 Plan Activity: fall precautions Weight Bearing Status: Non-Weight Bearing Diet: low cholesterol, low salt, diabetic Follow up with: BAYRON LUCIANO MD [Primary Care Provider] - 7 Days Prescriptions: Simvastatin [Zocor TAB] 40 mg PO QHS #30 tablet amLODIPine [Norvasc] 10 mg PO QDAY #30 tablet Aspirin [Aspirin TAB] 81 mg PO QDAY #30 tablet Hydrochlorothiazide [HCTZ] 25 mg PO QDAY #30 tablet
--- NOTE | 2016-10-08 10:01 | Event Note ---
Date: 10/08/16 CTA Neck reviewed < 50% stenosis b/l and TTE neg for thrombus. 66 YO F Hx HTN/DM2/Tob abuse p/w wake up ataxic hemiparesis syn confirmed on MRI Brain w/ L basal ganglia acute infarct.MRI Brain also read w/ R posterior temporal infarct but this is a T2 shine through artifact as no ADC correlate. MRA Head neg. LDL 190. 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 Plan and Recommendation: 1. No indication for pharmacologic thrombolysis with IV tPA or mechanical thrombectomy due to last known normal > 6 hrs from presentation. Current NIHSS 4. 2. Telemetry bed w/ Q4 hour neuro checks 3. Can lower MAPs by 10-15% daily to reach goal SBP 120-160 as permissive HTN period complete. 4. Secondary stroke prevention: ASA 325mg Daily x 1 then 81mg QDay & upgrade to full dose statin therapy (Crestor 20mg or 40mg OR Lipitor 40mg or 80mg Daily OR Zocor 40mg QDay) for goal LDL < 70. No firm indication at this point for therapeutic anticoagulation as pt has not had AFib captured on telemetry monitoring. 5. F/E/N: isotonic IVF prn, prn replete, bedside speech/swallow eval prior to PO intake. 6. DVT Prophylaxis 7. Stroke education, PT/OT/Speech Therapy consults, CM evaluation 8. For any changes in neurologic status, pls obtain STAT CTH w/o contrast and call neurology 9. If pt remains stable, no neurologic contraindication to discharge w/ outpt neuro follow up.
[2016-10-08 10:11] VITALS: BP 125/63
[2016-10-08] MEDS: HCTZ PO SCH (11:13)
[2016-10-08] MEDS: NORVASC PO SCH (11:13)
[2016-10-08] MEDS: COGENTIN PO SCH (11:15)
--- NOTE | 2016-10-09 08:24 | Vascular Lab Report ---
CAROTID DUPLEX STUDY: RIGHT PSVEDV CCA PROX:[id number] CCA DIST: 7617 ICA PROX: 7517 ICA MID:[id number] ICA DIST:[id number] ECA: 96 VERT: 63 13 LEFT PSVEDV CCA PROX: 8314 CCA DIST: 8416 ICA PROX:98158 ICA MID:13662 ICA DIST:17262 ECA: 93 VERT: 55 14 REASON FOR EXAM: Stroke. COMMENTS ON THE RIGHT: Doppler frequency analysis is consistent with 16 to 49 percent diameter reduction of the internal carotid artery. Minimal amount of plaque is seen. The common carotid artery is patent. The external carotid artery is patent. The vertebral artery has antegrade flow. COMMENTS ON THE LEFT: Doppler frequency analysis is consistent with 50 to 79 percent diameter reduction of the internal carotid artery. Mixed density plaque is noted in the carotid bulb and the internal carotid artery The common carotid artery is patent. The external carotid artery is patent. The vertebral artery has antegrade flow. IMPRESSION: 16 to 49 percent diameter reduction of the right internal carotid artery 50 to 79 percent diameter reduction of the left internal carotid artery. Clinical correlation is recommended. Followup CTA or MRA may be warranted.
== END 2016-10-08 14:23 | DRG 65 ==
LOC: ED 15:05 → 4A 16:18
PROVIDERS: ADMIT Internal Medicine; ATTEND Internal Medicine
DX: I63.9 Cerebral infarction, unspecified (principal); G81.91 Hemiplegia, unspecified affecting right dominant side; F20.9 Schizophrenia, unspecified; I10 Essential (primary) hypertension; G83.9 Paralytic syndrome, unspecified; E11.65 Type 2 diabetes mellitus with hyperglycemia; E78.5 Hyperlipidemia, unspecified; R27.0 Ataxia, unspecified; F29 Unspecified psychosis not due to a substance or known physiological condition; Z91.018 Allergy to other foods; Z83.3 Family history of diabetes mellitus; Z79.4 Long term (current) use of insulin; Z82.49 Family history of ischemic heart disease and other diseases of the circulatory system
CPT/HCPCS: 36415; 70450; 70498; 70544; 70551; 71010; 80053; 80061; 80307; 81001; 82550; 82553; 82962; 83036; 84484; 85025; 85610; 85670; 85730; 86850; 86900; 86901; 93005; 93010; 93306; 93880; 94760; 99406; G8978-GP; G8979-GP; J0360; J2405; J2680; Q9967

== ENCOUNTER 2020-02-07 15:05 | Inpatient (IN) | payer MEDICAID, MEDICARE ==
--- NOTE | 2020-02-07 15:26 | Emergency Department Report ---
ED General Adult HPI - General Stated complaint: GENERAL WEAKNESS Time Seen by Provider: 02/07/20 15:15 - History of Present Illness Initial comments: Patient is 69 years old female, assisted patient with history of hypertension, diabetes, CVA and schizophrenia. Patient brought to the emergency room via EMS for evaluation of generalized weakness. Patient stated that she felt weak all over but improving now. Patient denied any focal weakness, nu mbness or tingling sensation. Patient denied any headache, neck pain, chest pain, abdominal pain, bowel or bladder incontinence. EMS stated that patient tested positive for COVID-19 in November however there is no proof of patient being tested negative after that. Patient currently denying any hematemesis, hematochezia or melena. -: This afternoon - Related Data Home Medications Medication Instructions Recorded Confirmed Last Taken Acetaminophen [Acetaminophen TAB] 650 mg PO Q4HR PRN 10/03/16 10/03/16 Unknown Ibuprofen [Motrin 600 MG tab] 600 mg PO Q8H PRN 10/03/16 10/03/16 Unknown Magnesium Hydroxide [Hilton' 30 ml PO Q24H PRN 10/03/16 10/03/16 Unknown Milk of Magnesia] Novolin R 1 unit SQ 1XW 10/03/16 10/03/16 Unknown Zolpidem [Ambien] 10 mg PO QHS 10/03/16 10/03/16 Unknown fluPHENAZine decanoate 37.5 mg IM Q14D 10/03/16 10/03/16 Unknown [fluPHENAZine Decanoate] metFORMIN [Glucophage] 500 mg PO QDAY 10/03/16 10/03/16 Unknown traMADoL [Ultram 50 MG tab] 50 mg PO Q6HR PRN 10/03/16 10/03/16 Unknown Previous Rx's Medication Instructions Recorded Last Taken Type Benztropine [Cogentin] 1 mg PO BID tablet 12/19/15 Unknown Rx Aspirin 81 mg PO QDAY #30 tablet 10/07/16 Unknown Rx Simvastatin (Nf) [Zocor TAB] 40 mg PO QHS #30 tablet 10/07/16 Unknown Rx amLODIPine 10 mg PO QDAY #30 tablet 10/07/16 Unknown Rx hydroCHLOROthiazide [HCTZ] 25 mg PO QDAY #30 tablet 10/07/16 Unknown Rx Allergies Allergy/AdvReac Type Severity Reaction Status Date / Time tomato Allergy Itching Verified 04/13/17 17:53 ED Review of Systems ROS: Stated complaint: GENERAL WEAKNESS Other details as noted in HPI Comment: All other systems reviewed and negative Constitutional: denies: chills, fever Respiratory: denies: cough, shortness of breath, SOB with exertion Cardiovascular: denies: chest pain, palpitations Gastrointestinal: denies: abdominal pain, nausea, vomiting, diarrhea, constipation, hematemesis, melena, hematochezia Musculoskeletal: denies: back pain Neurological: weakness (Generalized). denies: headache, numbness, paresthesias, confusion, abnormal gait ED Past Medical Hx - Past Medical History Hx Hypertension: Yes Hx Heart Attack/AMI: No Hx Congestive Heart Failure: No Hx Diabetes: Yes Hx Deep Vein Thrombosis: No Hx Pulmonary Embolism: No Hx Liver Disease: No Hx Seizures: Yes Hx Psychiatric Treatment: Yes (schizophrenia per EMS) Hx Asthma: No Hx COPD: No Hx Tuberculosis: No Hx Dementia: No Hx HIV: No - Surgical History Hx Coronary Stent: No Hx Open Heart Surgery: No Hx Pacemaker: No Hx Internal Defibrillator: No Hx Cholecystectomy: No Hx Appendectomy: No Hx Breast Surgery: No Additional Surgical History: BRANDIE - Social History Smoking Status: Light Tobacco Smoker - Medications Home Medications: Home Medications Medication Instructions Recorded Confirmed Last Taken Type Benztropine [Cogentin] 1 mg PO BID tablet 12/19/15 10/03/16 Unknown Rx Acetaminophen [Acetaminophen TAB] 650 mg PO Q4HR PRN 10/03/16 10/03/16 Unknown History Ibuprofen [Motrin 600 MG tab] 600 mg PO Q8H PRN 10/03/16 10/03/16 Unknown History Magnesium Hydroxide [Hilton' 30 ml PO Q24H PRN 10/03/16 10/03/16 Unknown History Milk of Magnesia] Novolin R 1 unit SQ 1XW 10/03/16 10/03/16 Unknown History Zolpidem [Ambien] 10 mg PO QHS 10/03/16 10/03/16 Unknown History fluPHENAZine decanoate 37.5 mg IM Q14D 10/03/16 10/03/16 Unknown History [fluPHENAZine Decanoate] metFORMIN [Glucophage] 500 mg PO QDAY 10/03/16 10/03/16 Unknown History traMADoL [Ultram 50 MG tab] 50 mg PO Q6HR PRN 10/03/16 10/03/16 Unknown History Aspirin 81 mg PO QDAY #30 tablet 10/07/16 Unknown Rx Simvastatin (Nf) [Zocor TAB] 40 mg PO QHS #30 tablet 10/07/16 Unknown Rx amLODIPine 10 mg PO QDAY #30 tablet 10/07/16 Unknown Rx hydroCHLOROthiazide [HCTZ] 25 mg PO QDAY #30 tablet 10/07/16 Unknown Rx ED Physical Exam - General General appearance: alert, in no apparent distress - Head Head exam: Present: atraumatic, normocephalic, normal inspection - Eye Eye exam: Present: normal appearance - ENT ENT exam: Present: normal exam, normal orophraynx, mucous membranes moist - Neck Neck exam: Present: normal inspection, full ROM. Absent: tenderness, meningismus, lymphadenopathy, thyromegaly - Respiratory Respiratory exam: Present: normal lung sounds bilaterally - Cardiovascular Cardiovascular Exam: Present: regular rate, normal rhythm, normal heart sounds - GI/Abdominal GI/Abdominal exam: Present: soft, normal bowel sounds. Absent: distended, tenderness, guarding, rebound, rigid, organomegaly, mass, bruit, pulsatile mass, hernia - Extremities Exam Extremities exam: Present: normal inspection, full ROM, normal capillary refill. Absent: tenderness, pedal edema, joint swelling, calf tenderness - Back Exam Back exam: Present: normal inspection, full ROM. Absent: CVA tenderness (R), CVA tenderness (L) - Neurological Exam Neurological exam: Present: alert, oriented X3, CN II-XII intact, normal gait, reflexes normal. Absent: motor sensory deficit - Psychiatric Psychiatric exam: Present: normal mood - Skin Skin exam: Present: warm, intact, normal color ED Course Vital Signs 02/07/20 02/07/20 02/07/20 15:34 15:38 15:41 Temperature 97.8 F Pulse Rate 75 71 Respiratory 16 15 Rate Blood Pressure 147/66 Blood Pressure [Left] O2 Sat by Pulse 94 97 Oximetry 02/07/20 18:37 Temperature Pulse Rate 87 Respiratory 18 Rate Blood Pressure Blood Pressure 166/64 [Left] O2 Sat by Pulse 96 Oximetry ED Medical Decision Making - Lab Data Result diagrams: 02/07/20 15:50 02/07/20 15:50 - EKG Data -: EKG Interpreted by Al EKG shows normal: sinus rhythm Rate: normal - EKG Data Interpretation: no acute changes - Radiology Data Radiology results: report reviewed - Medical Decision Making Patient is 69 years old female, assisted patient with history of hypertension, diabetes, CVA and schizophrenia. Patient brought to the emergency room via EMS for evaluation of generalized weakness. Patient stated that she felt weak all over but improving now. Patient denied any focal weakness, numbness or tingling sensation. Patient denied any headache, neck pain, chest pain, abdominal pain, bowel or bladder incontinence. EMS stated that patient tested positive for COVID-19 in November however there is no proof of patient being tested negative after that. Patient currently denying any hematemesis, claudia tochezia or melena. Patient remained stable in the ER. Labs showed elevated white blood cells to 1 3,000. Chest x-ray showed a right middle lobe consolidation concerning for aspiration pneumonia. Patient received Levaquin 500 mg IV. I discussed the patient with Gordo Villalta, he agreed to admit the patient to medical service for further management. Critical care attestation.: If time is entered above; I have spent that time in minutes in the direct care of this critically ill patient, excluding procedure time. ED Disposition Clinical Impression: Aspiration pneumonia, Generalized weakness Disposition: DC-09 OP ADMIT IP TO THIS HOSP Is pt being admited?: Yes Condition: Stable Instructions: Bacterial Pneumonia (ED)
[2020-02-07 15:58] LABS: Mean Corpuscular HGB Conc 32 % (30-34); Mean Corpuscular Volume 73 fl (79-97); Platelet Count 549 K/mm3 (140-440); Red Blood Count 4.79 M/mm3 (3.65-5.03)
[2020-02-07 16:09] LABS: INR 0.82 (0.87-1.13)
[2020-02-07 16:24] LABS: Red Cell Distribution Width 20.2 % (13.2-15.2)
[2020-02-07 16:25] LABS: Alanine Aminotransferase 24 units/L (7-56); Albumin 3.9 g/dL (3.9-5); BUN/Creatinine Ratio 12; Blood Urea Nitrogen 11 mg/dL (7-17); Calcium 9.4 mg/dL (8.4-10.2); Hemolysis Index 45
[2020-02-07 16:30] LABS: Bilirubin,Direct < 0.2 mg/dL (0-0.2)
[2020-02-07 17:04] LABS: Anisocytosis 1+; Hypochromasia 1+; Total Cells Counted 100
[2020-02-07 18:49] LABS: Bacteria,Urine 1+ /HPF (Negative); Bilirubin,Urine NEG (Negative); Blood,Urine NEG (Negative); Color,Urine Yellow (Yellow); Mucus,Urine FEW /HPF; Urobilinogen,Urine < 2.0 mg/dL (<2.0)
[2020-02-07 19:01] LABS: Amphetamine Screen,Urine Negative; Benzodiazepines Screen,Urine Negative; Cannabinoid Screen,Urine Negative; Cocaine Screen,Urine Negative; Methadone Screen,Urine Negative; Opiate Screen,Urine Negative
--- NOTE | 2020-02-07 19:44 | XRay Report ---
Chest single view INDICATION: Dyspnea and weakness IMPRESSION: Patchy perihilar airspace density noted within the mid and lower lungs. No large pleural effusion. Low lung volumes. Signer Name: Frank Quiroz MD Signed: 02/07/2020 7:39 PM Workstation Name: [id number]
--- NOTE | 2020-02-07 20:00 | Cat Scan Report ---
CT ABDOMEN AND PELVIS WITH IV CONTRAST INDICATION: abdominal pain/weakness. COMPARISON: None available. TECHNIQUE: Axial CT images were obtained through the abdomen and pelvis after 100 mL IV contrast. All CT scans a t this location are performed using CT dose reduction for ALARA by means of automated exposure contro l. FINDINGS -- ABDOMEN: Lung Bases: Patchy airspace density within the medial aspects of both lower lungs. Liver: Normal. Gallbladder: Normal. Bile Ducts: Normal. Pancreas: Normal. Spleen: Normal. Adrenals: Normal. Right Kidney and Proximal Ureter: Normal. Left Kidney and Proximal Ureter: Normal. Stomach and Bowel: Normal. Lymph Nodes: No significant adenopathy. Aorta: No significant abnormality. IVC: Normal. Additional Findings: None. FINDINGS -- PELVIS: Urinary Bladder and Distal Ureters: Normal. Reproductive Organs: No acute abnormality. Appendix: Normal. Bowel: No acute abnormality. Sigmoid diverticulosis without diverticulitis. Free Fluid: None. Lymph Nodes: No significant adenopathy. Additional Findings: None. Skeletal System: No acute abnormality. Thoracolumbar degenerative changes with severe degenerative ch anges of the right hip. IMPRESSION: 1. Patchy ill-defined consolidation within both lower lung suspicious for chronic aspiration pneumoni a 2. Sigmoid diverticulosis without diverticulitis. Signer Name: Frank Quiroz MD Signed: 02/07/2020 7:56 PM Workstation Name: [id number]
[2020-02-07] MEDS ORDERED: MAGNESIUM HYDROXIDE (MOM) ORAL LIQD UDC PO PRN (22:21)
[2020-02-07] MEDS ORDERED: DEXTROSE 50% IN WATER (25GM) 50 ML SYRINGE IV PRN (22:21)
[2020-02-07] MEDS ORDERED: ACETAMINOPHEN 325 MG TAB PO PRN (22:21)
[2020-02-07] MEDS ORDERED: ONDANSETRON 4 MG/2 ML INJ IV PRN (22:21)
--- NOTE | 2020-02-07 22:31 | History and Physical Report ---
History of Present Illness Date of examination: 02/07/20 Date of admission: 02/07/20 21:27 Chief complaint: Generalized Weakness History of present illness: 69-year-old female resident of a fdc with known history of hypertension, diabetes mellitus, history of old CVA, and schizophrenia presented to the emergency room today with for evaluation of generalized body weakness. Patient was brought in by EMS. She denies any headache or dizziness, denies any chest pain, no nausea vomiting, no abdominal pain, no diarrhea. EMS indicates that patient was tested COVID-19 positive sometime in November but there has been no indication that she has been re-tested since then. She denies any cough or shortness of breath. Work-up in the emergency room today shows leukocytosis of 13, chest x-ray and CT scan of the abdomen and pelvis shows bilateral lower lobe consolidation suggestive of aspiration pneumonia. Patient has been started on empiric IV antibiotics. Past History Past Medical History: diabetes, hypertension, seizures, stroke, other (H/O Schizophrenia) Past Surgical History: No surgical history Social history: smoking (Occasional tobacco use) Medications and Allergies Allergies Allergy/AdvReac Type Severity Reaction Status Date / Time tomato Allergy Itching Verified 10/03/16 17:53 Home Medications Medication Instructions Recorded Confirmed Last Taken Type Benztropine [Cogentin] 1 mg PO BID tablet 12/19/15 10/03/16 Unknown Rx Acetaminophen [Acetaminophen TAB] 650 mg PO Q4HR PRN 10/03/16 10/03/16 Unknown History Ibuprofen [Motrin 600 MG tab] 600 mg PO Q8H PRN 10/03/16 10/03/16 Unknown History Magnesium Hydroxide [Hilton' 30 ml PO Q24H PRN 10/03/16 10/03/16 Unknown History Milk of Magnesia] Novolin R 1 unit SQ 1XW 10/03/16 10/03/16 Unknown History Zolpidem [Ambien] 10 mg PO QHS 10/03/16 10/03/16 Unknown History fluPHENAZine decanoate 37.5 mg IM Q14D 10/03/16 10/03/16 Unknown History [fluPHENAZine Decanoate] metFORMIN [Glucophage] 500 mg PO QDAY 10/03/16 10/03/16 Unknown History traMADoL [Ultram 50 MG tab] 50 mg PO Q6HR PRN 10/03/16 10/03/16 Unknown History Aspirin 81 mg PO QDAY #30 tablet 10/07/16 Unknown Rx Simvastatin (Nf) [Zocor TAB] 40 mg PO QHS #30 tablet 10/07/16 Unknown Rx amLODIPine 10 mg PO QDAY #30 tablet 10/07/16 Unknown Rx hydroCHLOROthiazide [HCTZ] 25 mg PO QDAY #30 tablet 10/07/16 Unknown Rx Active Meds: Active Medications Acetaminophen (Tylenol) 650 mg PO Q4H PRN PRN Reason: Pain MILD(1-3)/Fever >100.5/MCCRARY Ondansetron HCl (Zofran) 4 mg IV Q8H PRN PRN Reason: Nausea And Vomiting Review of Systems Constitutional: weakness, no fever, no chills Cardiovascular: no chest pain, no palpitations Respiratory: no cough, no shortness of breath Gastrointestinal: no abdominal pain, no nausea, no vomiting, no diarrhea Genitourinary Female: no pelvic pain, no flank pain, no dysuria, no hematuria Musculoskeletal: no neck pain, no low back pain Integumentary: no rash, no pruritis Neurological: no headaches, no confusion Psychiatric: no anxiety, no depression Exam - Constitutional Vitals: Temp Pulse Resp BP Pulse Ox 98.2 F 115 H 21 153/73 95 02/07/20 19:10 02/07/20 21:00 02/07/20 21:00 02/07/20 21:00 02/07/20 21:00 General appearance: Present: no acute distress, well-nourished - EENT Eyes: Present: PERRL, EOM intact. Absent: scleral icterus ENT: hearing intact, clear oral mucosa, dentition normal - Neck Neck: Present: supple, normal ROM - Respiratory Respiratory effort: normal Respiratory: right: diminished - Cardiovascular Rhythm: regular Heart Sounds: Present: S1 & S2. Absent: gallop, systolic murmur, diastolic murmur, rub - Extremities Extremities: no ischemia, pulses intact, pulses symmetrical, No edema, Full ROM Peripheral Pulses: within normal limits - Abdominal General gastrointestinal: Present: soft, non-tender, non-distended, normal bowel sounds. Absent: mass - Integumentary Integumentary: Present: clear, warm, dry - Musculoskeletal Musculoskeletal: strength equal bilaterally - Psychiatric Psychiatric: appropriate mood/affect, intact judgment & insight, memory intact, cooperative - Neurologic Neurologic: CNII-XII intact, no focal deficits, moves all extremities HEART Score - HEART Score Troponin: Troponin T < 0.010 ng/mL (0.00-0.029) 02/07/20 15:50 Results - Labs CBC & Chem 7: 02/07/20 15:50 02/07/20 22:00 Labs: Abnormal lab results 02/07/20 02/07/20 02/07/20 Range/Units 15:50 15:50 15:50 WBC 13.3 H (4.5-11.0) K/mm3 MCV 73 L (79-97) fl MCH 23 L (28-32) pg RDW 20.2 H (13.2-15.2) % Plt Count 549 H (140-440) K/mm3 Monocytes % (Manual) 8.0 H (0.0-7.3) % Monocytes # (Manual) 1.1 H (0.0-0.8) K/mm3 PT 11.4 L (12.2-14.9) Sec. INR 0.82 L (0.87-1.13) D-Dimer (0-234) ng/mlDDU Alkaline Phosphatase 158 H (35-129) units/L 02/07/20 Range/Units 15:50 WBC (4.5-11.0) K/mm3 MCV (79-97) fl MCH (28-32) pg RDW (13.2-15.2) % Plt Count (140-440) K/mm3 Monocytes % (Manual) (0.0-7.3) % Monocytes # (Manual) (0.0-0.8) K/mm3 PT (12.2-14.9) Sec. INR (0.87-1.13) D-Dimer 396.04 H (0-234) ng/mlDDU Alkaline Phosphatase (35-129) units/L Assessment and Plan - Patient Problems (1) Altered mental status Current Visit: No Status: Acute Qualifiers: Altered mental status type: unspecified Qualified Code(s): R41.82 - Altered mental status, unspecified Plan to address problem: Possibly secondary to underlying pneumonia. Will monitor mental status. (2) Aspiration pneumonia Current Visit: Yes Status: Acute Plan to address problem: Patient placed on empiric IV antibiotics. We we will await blood culture result. (3) Generalized weakness Current Visit: Yes Status: Acute (4) Diabetes Current Visit: No Status: Chronic Qualifiers: Diabetes mellitus type: type 2 Diabetes mellitus complication status: with hyperglycemia Plan to address problem: We will monitor Accu-Cheks (5) HTN (hypertension) Current Visit: No Status: Chronic Qualifiers: Hypertension type: essential hypertension Qualified Code(s): I10 - Essential (primary) hypertension Plan to address problem: We will continue patient on her routine antihypertensive medication. Will monitor vital signs closely (6) Schizophrenia Current Visit: No Status: Chronic Qualifiers: Schizophrenia type: unspecified Qualified Code(s): F20.9 - Schizophrenia, unspecified Plan to address problem: Resume patient on her routine home medication. (7) DVT prophylaxis Current Visit: No Status: Acute Plan to address problem: Patient placed on subcutaneous Lovenox. (8) Full code status Current Visit: Yes Status: Acute
[2020-02-07 22:32] LABS: C-Reactive Protein 0.9 mg/dL (0.00-1.30)
[2020-02-08 06:13] LABS: Basophils # (Auto) 0.1 K/mm3 (0.0-0.1); Basophils % (Auto) 0.7 % (0.0-1.8); Eosinophils # (Auto) 0.2 K/mm3 (0.0-0.4); Eosinophils % (Auto) 1.5 % (0.0-4.3); Hematocrit 33.1 % (30.3-42.9); Hemoglobin 10.6 gm/dl (10.1-14.3); Lymphocytes # (Auto) 2.7 K/mm3 (1.2-5.4); Lymphocytes % (Auto) 21.5 % (13.4-35.0); Mean Corpuscular HGB Conc 32 % (30-34); Mean Corpuscular Volume 73 fl (79-97); Monocytes # (Auto) 1.1 K/mm3 (0.0-0.8); Monocytes % (Auto) 8.6 % (0.0-7.3); Platelet Count 537 K/mm3 (140-440); Red Blood Count 4.51 M/mm3 (3.65-5.03)
[2020-02-08 06:14] LABS: Red Cell Distribution Width 20.3 % (13.2-15.2)
[2020-02-08 06:17] LABS: BUN/Creatinine Ratio 16; Blood Urea Nitrogen 14 mg/dL (7-17); Calcium 9.1 mg/dL (8.4-10.2); Hemolysis Index 5
[2020-02-08 06:19] LABS: INR 0.97 (0.87-1.13)
[2020-02-08] MEDS: PIPERACIL/TAZOBACTA 4.5/NS 100 4.5 GM/100 ML VIAL IV SCH ×2 (06:42→13:18)
[2020-02-08] MEDS: SODIUM CHLORIDE 0.9% 1000 ML 1,000 ML IV SCH ×3 (08:02→21:24)
[2020-02-08] MEDS: INSULIN LISPRO 100 UNIT/ML VIAL 3 mL SUB-Q SCH ×4 (09:34→23:22)
--- NOTE | 2020-02-08 15:49 | Consultation ---
History of Present Illness - Reason for Consult Consult date: 02/08/20 Pneumonia, h/o COVID Requesting physician: QUIQUE DAVENPORT - History of Present Illness The patient is a 69-year-old female, care home resident with hypertension, diabetes, CVA, schizophrenia was admitted to the hospital after she felt weak all over and had presyncope. She reportedly tested positive for COVID-19 in November 2019. Additional evaluation in the emergency room showed mild leukocytosis along with imaging suggestive of possible aspiration pneumonia. She was started on empiric antibiotics. She is otherwise been afebrile. At the time of my evaluation, she feels completely fine and is on room air. Denies any nausea, vomiting or diarrhea denies any cough or shortness of breath. Wants to go home. Review of Systems: General: no fevers,chills or rigors HEENT: no new visual disturbance Respiratory: Mild cough, no sputum, hemoptysis or shortness of breath Cardiovascular: No chest pain, syncope Gastrointestinal: No nausea, vomiting or diarrhea Genitourinary: No dysuria or hematuria Musculoskeletal: No new or worsening neck pain or back pain Neurologic: No headaches, seizures Hematologic: No easy bruising or bleeding Endocrine: No night sweats or acute weight loss Skin: negative for rash, jaundice Psychiatric: No suicidal or homicidal ideation Past History Past Medical History: diabetes, hypertension, seizures, stroke, other (H/O Schizophrenia) Past Surgical History: No surgical history Social history: smoking (Occasional tobacco use) Medications and Allergies Allergies Allergy/AdvReac Type Severity Reaction Status Date / Time tomato Allergy Itching Verified 10/03/16 17:53 Home Medications Medication Instructions Recorded Confirmed Last Taken Type Benztropine [Cogentin] 1 mg PO BID tablet 12/19/15 10/03/16 Unknown Rx Acetaminophen [Acetaminophen TAB] 650 mg PO Q4HR PRN 10/03/16 10/03/16 Unknown History Ibuprofen [Motrin 600 MG tab] 600 mg PO Q8H PRN 10/03/16 10/03/16 Unknown History Magnesium Hydroxide [[place]' 30 ml PO Q24H PRN 10/03/16 10/03/16 Unknown History Milk of Magnesia] Novolin R 1 unit SQ 1XW 10/03/16 10/03/16 Unknown History Zolpidem [Ambien] 10 mg PO QHS 10/03/16 10/03/16 Unknown History fluPHENAZine decanoate 37.5 mg IM Q14D 10/03/16 10/03/16 Unknown History [fluPHENAZine Decanoate] metFORMIN [Glucophage] 500 mg PO QDAY 10/03/16 10/03/16 Unknown History traMADoL [Ultram 50 MG tab] 50 mg PO Q6HR PRN 10/03/16 10/03/16 Unknown History Aspirin 81 mg PO QDAY #30 tablet 10/07/16 Unknown Rx Simvastatin (Nf) [Zocor TAB] 40 mg PO QHS #30 tablet 10/07/16 Unknown Rx amLODIPine 10 mg PO QDAY #30 tablet 10/07/16 Unknown Rx hydroCHLOROthiazide [HCTZ] 25 mg PO QDAY #30 tablet 10/07/16 Unknown Rx Active Meds: Active Medications Acetaminophen (Tylenol) 650 mg PO Q4H PRN PRN Reason: Pain MILD(1-3)/Fever >100.5/MCCRARY Dextrose (D50w (25gm) Syringe) 50 ml IV Q30MIN PRN; Protocol PRN Reason: Hypoglycemia Enoxaparin Sodium (Enoxaparin) 40 mg SUB-Q QDAY@2200 SYLVIE Sodium Chloride (Nacl 0.9% 1000 Ml) 1,000 mls @ 125 mls/hr IV DIRECT SYLVIE Last Admin: 02/08/20 13:18 Dose: 125 mls/hr Documented by: Piperacillin Sod/Tazobactam Sod (Zosyn/Ns 4.5gm/100ml) 4.5 gm in 100 mls @ 200 mls/hr IV Q8HR SYLVIE; Protocol Last Admin: 02/08/20 13:18 Dose: 200 mls/hr Documented by: Insulin Human Lispro (Humalog) 0 unit SUB-Q ACHS SYLVIE; Protocol Last Admin: 02/08/20 12:34 Dose: 300 unit Documented by: Magnesium Hydroxide (Milk Of Magnesia) 30 ml PO Q4H PRN PRN Reason: Constipation Ondansetron HCl (Zofran) 4 mg IV Q8H PRN PRN Reason: Nausea And Vomiting Sodium Chloride (Sodium Chloride Flush Syringe 10 Ml) 10 ml IV BID SYLVIE Last Admin: 02/08/20 09:35 Dose: 10 ml Documented by: Sodium Chloride (Sodium Chloride Flush Syringe 10 Ml) 10 ml IV PRN PRN PRN Reason: LINE FLUSH Physical Examination - Physical Exam Narrative exam: Physical Exam: Constitutional: Alert, cooperative. No acute distress Head, Ears, Nose: Normocephalic, atraumatic. External ears, nose normal Eyes: Conjunctivae/corneas clear. No icterus. No ptosis. Neck: Supple, no meningeal signs Cardiovascular: S1, S2 normal. Respiratory: Good air entry, clear to auscultation bilaterally GI: Soft, non-tender; bowel sounds normal. No peritoneal signs Musculoskeletal: No pedal edema, no cyanosis. Skin: No rash or abscess Hem/Lymphatic: No palpable cervical or supraclavicular nodes. No lymphangitis Psych: Mood ok. Affect normal Neurological: Awake, alert, oriented. No gross abnormality - Constitutional Vitals: Vital Signs Temp Pulse Resp BP Pulse Ox 99.5 F 91 H 18 170/77 97 02/08/20 10:59 02/08/20 10:59 02/08/20 10:59 02/08/20 10:59 02/08/20 10:59 Temperature -Last 24 Hours Temperature 99.5 F Temperature 98.9 F Temperature 98.2 F Temperature 98.2 F Results - Labs CBC & Chem 7: 02/08/20 04:53 02/08/20 04:53 Labs: Abnormal lab results 02/07/20 02/07/20 02/07/20 Range/Units 15:50 15:50 15:50 WBC 13.3 H (4.5-11.0) K/mm3 MCV 73 L (79-97) fl MCH 23 L (28-32) pg RDW 20.2 H (13.2-15.2) % Plt Count 549 H (140-440) K/mm3 [place] % (Auto) (0.0-7.3) % [place] # (0.0-0.8) K/mm3 Monocytes % (Manual) 8.0 H (0.0-7.3) % Seg Neutrophils # (1.8-7.7) K/mm3 Monocytes # (Manual) 1.1 H (0.0-0.8) K/mm3 PT 11.4 L (12.2-14.9) Sec. INR 0.82 L (0.87-1.13) D-Dimer (0-234) ng/mlDDU Glucose (65-100) mg/dL POC Glucose (70-105) Alkaline Phosphatase 158 H (35-129) units/L Lactate Dehydrogenase (91-180) units/L 02/07/20 02/07/20 02/08/20 Range/Units 15:50 22:00 00:26 WBC (4.5-11.0) K/mm3 MCV (79-97) fl MCH (28-32) pg RDW (13.2-15.2) % Plt Count (140-440) K/mm3 [place] % (Auto) (0.0-7.3) % [place] # (0.0-0.8) K/mm3 Monocytes % (Manual) (0.0-7.3) % Seg Neutrophils # (1.8-7.7) K/mm3 Monocytes # (Manual) (0.0-0.8) K/mm3 PT (12.2-14.9) Sec. INR (0.87-1.13) D-Dimer 396.04 H (0-234) ng/mlDDU Glucose 53 L (65-100) mg/dL POC Glucose 265 H (70-105) Alkaline Phosphatase (35-129) units/L Lactate Dehydrogenase 434 H (91-180) units/L 02/08/20 02/08/20 02/08/20 Range/Units 04:53 04:53 08:18 WBC 12.6 H (4.5-11.0) K/mm3 MCV 73 L (79-97) fl MCH 24 L (28-32) pg RDW 20.3 H (13.2-15.2) % Plt Count 537 H (140-440) K/mm3 [place] % (Auto) 8.6 H (0.0-7.3) % [place] # 1.1 H (0.0-0.8) K/mm3 Monocytes % (Manual) (0.0-7.3) % Seg Neutrophils # 8.5 H (1.8-7.7) K/mm3 Monocytes # (Manual) (0.0-0.8) K/mm3 PT (12.2-14.9) Sec. INR (0.87-1.13) D-Dimer (0-234) ng/mlDDU Glucose 252 H (65-100) mg/dL POC Glucose 238 H (70-105) Alkaline Phosphatase (35-129) units/L Lactate Dehydrogenase (91-180) units/L /18/20 Range/Units 11:14 WBC (4.5-11.0) K/mm3 MCV (79-97) fl MCH (28-32) pg RDW (13.2-15.2) % Plt Count (140-440) K/mm3 [place] % (Auto) (0.0-7.3) % [place] # (0.0-0.8) K/mm3 Monocytes % (Manual) (0.0-7.3) % Seg Neutrophils # (1.8-7.7) K/mm3 Monocytes # (Manual) (0.0-0.8) K/mm3 PT (12.2-14.9) Sec. INR (0.87-1.13) D-Dimer (0-234) ng/mlDDU Glucose (65-100) mg/dL POC Glucose 177 H (70-105) Alkaline Phosphatase (35-129) units/L Lactate Dehydrogenase (91-180) units/L - Imaging and Cardiology Chest x-ray: report reviewed, image reviewed CT scan - abdomen: report reviewed, image reviewed (Patchy bibasilar infiltrates) Assessment and Plan Cultures: COVID-19 PCR: Negative 02/07/2020 blood culture: In process A/P: 69-year-old female, care home resident with hypertension, diabetes, CVA, sylvie izophrenia was admitted to the hospital after she felt weak all over and had presyncope: #Patchy bibasilar infiltrates: Concerning for aspiration. COVID-19 negative. Not hypoxic. No fever. She reportedly tested positive for COVID-19 in November 2019, markers here not elevated. #Leukocytosis, thrombocytosis #DM: uncontrolled Recs: P.O. Augmentin 875 mg twice daily for 4 more days Zosyn discontinued Mame Tesfaye MD, FACP [facility] ([facility] C: [phone] O: [phone] F: [phone]
[2020-02-08] MEDS: AMOXICILLIN/K CLAV 875/125MG TAB PO SCH ×2 (18:03→21:24)
--- NOTE | 2020-02-08 21:08 | Progress Note ---
Assessment and Plan - Patient Problems (1) Pneumonia Status: Acute Plan to address problem: Pneumonia protocol: IV antibiotic therapy, nebulizer therapy, pulse oximetry, pulmonary toilet, discharge planning in a.m. (2) Debility Status: Acute Plan to address problem: Chronic, supportive care, discharge planning to detention facility. (3) Suspected 2019 novel coronavirus infection Status: Acute Plan to address problem: Coronavirus PCR negative. (4) DVT prophylaxis Status: Acute Plan to address problem: SCD to bilateral lower extremities while in bed (5) Advance care planning Status: Acute Plan to address problem: Disease education conducted, patient is full code, prognosis discussed, +30 mi nutes. History Interval history: 69 YO Female HD #2 with Aspiration Pneumonia, Debility, Schizophrenia. Patient coronavirus PCR is negative. Patient status improved since admission. No reported nursing events overnight. Discharge planning in a.m. if patient continues on current response to treatment. Hospitalist Physical - Constitutional Vitals: Temp Pulse Resp BP Pulse Ox 99.5 F 91 H 18 178/76 96 02/08/20 16:19 02/08/20 16:19 02/08/20 16:19 02/08/20 16:19 02/08/20 16:19 General appearance: Present: no acute distress, well-nourished - EENT Eyes: Present: PERRL ENT: hearing intact - Neck Neck: Present: supple - Respiratory Respiratory: bilateral: CTA - Cardiovascular Rhythm: regular Heart Sounds: Present: S1 & S2 - Extremities Extremities: no ischemia Peripheral Pulses: within normal limits - Abdominal General gastrointestinal: soft, non-tender, non-distended - Integumentary Integumentary: Present: clear, dry - Psychiatric Psychiatric: cooperative - Neurologic Neurologic: CNII-XII intact HEART Score - HEART Score Troponin: Troponin T < 0.010 ng/mL (0.00-0.029) 02/07/20 15:50 Results - Labs CBC & Chem 7: 02/08/20 04:53 02/08/20 04:53 Labs: Laboratory Last Values WBC 12.6 K/mm3 (4.5-11.0) H 02/08/20 04:53 RBC 4.51 M/mm3 (3.65-5.03) 02/08/20 04:53 Hgb 10.6 gm/dl (10.1-14.3) 02/08/20 04:53 Hct 33.1 % (30.3-42.9) 02/08/20 04:53 MCV 73 fl (79-97) L 02/08/20 04:53 MCH 24 pg (28-32) L 02/08/20 04:53 MCHC 32 % (30-34) 02/08/20 04:53 RDW 20.3 % (13.2-15.2) H 02/08/20 04:53 Plt Count 537 K/mm3 (140-440) H 02/08/20 04:53 Lymph % (Auto) 21.5 % (13.4-35.0) 02/08/20 04:53 [place] % (Auto) 8.6 % (0.0-7.3) H 02/08/20 04:53 Eos % (Auto) 1.5 % (0.0-4.3) 02/08/20 04:53 Baso % (Auto) 0.7 % (0.0-1.8) 02/08/20 04:53 Lymph # 2.7 K/mm3 (1.2-5.4) 02/08/20 04:53 [place] # 1.1 K/mm3 (0.0-0.8) H 02/08/20 04:53 Eos # 0.2 K/mm3 (0.0-0.4) 02/08/20 04:53 Baso # 0.1 K/mm3 (0.0-0.1) 02/08/20 04:53 Add Manual Diff Complete 02/07/20 15:50 Total Counted 100 02/07/20 15:50 Seg Neutrophils % 67.7 % (40.0-70.0) 02/08/20 04:53 Seg Neuts % (Manual) 53.0 % (40.0-70.0) 02/07/20 15:50 Band Neutrophils % 0 % 02/07/20 15:50 Lymphocytes % (Manual) 35.0 % (13.4-35.0) 02/07/20 15:50 Reactive Lymphs % (Man) 0 % 02/07/20 15:50 Monocytes % (Manual) 8.0 % (0.0-7.3) H 02/07/20 15:50 Eosinophils % (Manual) 3.0 % (0.0-4.3) 02/07/20 15:50 Basophils % (Manual) 1.0 % (0.0-1.8) 02/07/20 15:50 Metamyelocytes % 0 % 02/07/20 15:50 Myelocytes % 0 % 02/07/20 15:50 Promyelocytes % 0 % 02/07/20 15:50 Blast Cells % 0 % 02/07/20 15:50 Nucleated RBC % Not Reportable 02/07/20 15:50 Seg Neutrophils # 8.5 K/mm3 (1.8-7.7) H 02/08/20 04:53 Seg Neutrophils # Man 7.0 K/mm3 (1.8-7.7) 02/07/20 15:50 Band Neutrophils # 0.0 K/mm3 02/07/20 15:50 Lymphocytes # (Manual) 4.7 K/mm3 (1.2-5.4) 02/07/20 15:50 Abs React Lymphs (Man) 0.0 K/mm3 02/07/20 15:50 Monocytes # (Manual) 1.1 K/mm3 (0.0-0.8) H 02/07/20 15:50 Eosinophils # (Manual) 0.4 K/mm3 (0.0-0.4) 02/07/20 15:50 Basophils # (Manual) 0.1 K/mm3 (0.0-0.1) 02/07/20 15:50 Metamyelocytes # 0.0 K/mm3 02/07/20 15:50 Myelocytes # 0.0 K/mm3 02/07/20 15:50 Promyelocytes # 0.0 K/mm3 02/07/20 15:50 Blast Cells # 0.0 K/mm3 02/07/20 15:50 WBC Morphology Not Reportable 02/07/20 15:50 Hypersegmented Neuts Not Reportable 02/07/20 15:50 Hyposegmented Neuts Not Reportable 02/07/20 15:50 Hypogranular Neuts Not Reportable 02/07/20 15:50 Smudge Cells Not Reportable 02/07/20 15:50 Toxic Granulation Not Reportable 02/07/20 15:50 Toxic Vacuolation Not Reportable 02/07/20 15:50 Dohle Bodies Not Reportable 02/07/20 15:50 Pelger-Huet Anomaly Not Reportable 02/07/20 15:50 Westley Rods Not Reportable 02/07/20 15:50 Platelet Estimate Not Reportable 02/07/20 15:50 Clumped Platelets Not Reportable 02/07/20 15:50 Plt Clumps, EDTA Not Reportable 02/07/20 15:50 Large Platelets Not Reportable 02/07/20 15:50 Giant Platelets Not Reportable 02/07/20 15:50 Platelet Satelliting Not Reportable 02/07/20 15:50 Plt Morphology Comment Not Reportable 02/07/20 15:50 RBC Morphology Not Reportable 02/07/20 15:50 Dimorphic RBCs Not Reportable 02/07/20 15:50 Polychromasia Not Reportable 02/07/20 15:50 Hypochromasia 1+ 02/07/20 15:50 Poikilocytosis Not Reportable 02/07/20 15:50 Anisocytosis 1+ 02/07/20 15:50 Microcytosis Not Reportable 02/07/20 15:50 Macrocytosis Not Reportable 02/07/20 15:50 Spherocytes Not Reportable 02/07/20 15:50 Pappenheimer Bodies Not Reportable 02/07/20 15:50 Sickle Cells Not Reportable 02/07/20 15:50 Target Cells Not Reportable 02/07/20 15:50 Tear Drop Cells Not Reportable 02/07/20 15:50 Ovalocytes Not Reportable 02/07/20 15:50 Helmet Cells Not Reportable 02/07/20 15:50 [place] Bodies Not Reportable 02/07/20 15:50 [place] Rings Not Reportable 02/07/20 15:50 [place] Cells Not Reportable 02/07/20 15:50 Bite Cells Not Reportable 02/07/20 15:50 Crenated Cell Not Reportable 02/07/20 15:50 Elliptocytes Not Reportable 02/07/20 15:50 Acanthocytes (Spur) Not Reportable 02/07/20 15:50 Rouleaux Not Reportable 02/07/20 15:50 Hemoglobin C Crystals Not Reportable 02/07/20 15:50 Schistocytes Not Reportable 02/07/20 15:50 Malaria parasites Not Reportable 02/07/20 15:50 Ned Bodies Not Reportable 02/07/20 15:50 Hem Pathologist Commnt No 02/07/20 15:50 PT 13.0 Sec. (12.2-14.9) 02/08/20 04:53 INR 0.97 (0.87-1.13) 02/08/20 04:53 D-Dimer 396.04 ng/mlDDU (0-234) H 02/07/20 15:50 Sodium 138 mmol/L (137-145) 02/08/20 04:53 Potassium 3.9 mmol/L (3.6-5.0) 02/08/20 04:53 Chloride 99.1 mmol/L (98-107) 02/08/20 04:53 Carbon Dioxide 23 mmol/L (22-30) 02/08/20 04:53 Anion Gap 20 mmol/L 02/08/20 04:53 BUN 14 mg/dL (7-17) 02/08/20 04:53 Creatinine 0.9 mg/dL (0.6-1.2) 02/08/20 04:53 Estimated GFR > 60 ml/min 02/08/20 04:53 BUN/Creatinine Ratio 16 % 02/08/20 04:53 Glucose 252 mg/dL (65-100) H 02/08/20 04:53 POC Glucose 212 (70-105) H 02/08/20 16:36 Calcium 9.1 mg/dL (8.4-10.2) 02/08/20 04:53 Magnesium 1.90 mg/dL (1.7-2.3) 02/07/20 15:50 Ferritin 27.2 ng/mL (10.0-200.0) 02/07/20 22:00 Total Bilirubin 0.20 mg/dL (0.1-1.2) 02/07/20 15:50 Direct Bilirubin < 0.2 mg/dL (0-0.2) 02/07/20 15:50 AST 24 units/L (5-40) 02/07/20 15:50 ALT 24 units/L (7-56) 02/07/20 15:50 Alkaline Phosphatase 158 units/L (35-129) H 02/07/20 15:50 Lactate Dehydrogenase 434 units/L (91-180) H 02/07/20 22:00 Troponin T < 0.010 ng/mL (0.00-0.029) 02/07/20 15:50 C-Reactive Protein 0.90 mg/dL (0.00-1.30) 02/07/20 22:00 Total Protein 8.0 g/dL (6.3-8.2) 02/07/20 15:50 Albumin 3.9 g/dL (3.9-5) 02/07/20 15:50 Albumin/Globulin Ratio 1.0 % 02/07/20 15:50 Procalcitonin < 0.05 ng/mL (<0.15) 02/07/20 22:00 Urine Color Yellow (Yellow) 02/07/20 17:54 Urine Turbidity Clear (Clear) 02/07/20 17:54 Urine pH 6.0 (5.0-7.0) 02/07/20 17:54 Ur Specific [place] 1.016 (1.003-1.030) 02/07/20 17:54 Urine Protein 100 mg/dl mg/dL (Negative) 02/07/20 17:54 Urine Glucose (UA) 50 mg/dL (Negative) 02/07/20 17:54 Urine Ketones Neg mg/dL (Negative) 02/07/20 17:54 Urine Blood Neg (Negative) 02/07/20 17:54 Urine Nitrite Neg (Negative) 02/07/20 17:54 Urine Bilirubin Neg (Negative) 02/07/20 17:54 Urine Urobilinogen < 2.0 mg/dL (<2.0) 02/07/20 17:54 Ur Leukocyte Esterase Neg (Negative) 02/07/20 17:54 Urine WBC (Auto) 1.0 /HPF (0.0-6.0) 02/07/20 17:54 Urine RBC (Auto) 4.0 /HPF (0.0-6.0) 02/07/20 17:54 U Epithel Cells (Auto) 2.0 /HPF (0-13.0) 02/07/20 17:54 Urine Bacteria (Auto) 1+ /HPF (Negative) 02/07/20 17:54 Urine Mucus Few /HPF 02/07/20 17:54 Nasal Screen MRSA (PCR) Negative (Negative) 02/08/20 Unknown Urine Opiates Screen Negative 02/07/20 17:54 Urine Methadone Screen Negative 02/07/20 17:54 Ur Barbiturates Screen Negative 02/07/20 17:54 Ur Phencyclidine Scrn Negative 02/07/20 17:54 Ur Amphetamines Screen Negative 02/07/20 17:54 U Benzodiazepines Scrn Negative 02/07/20 17:54 Urine Cocaine Screen Negative 02/07/20 17:54 U Marijuana (THC) Screen Negative 02/07/20 17:54 Drugs of Abuse Note Disclamer 02/07/20 17:54 Coronavirus (PCR) Negative (Negative) 02/07/20 Unknown Microbiology: Microbiology 02/07/20 19:50 Peripheral/Venous Blood Culture - Preliminary NO GROWTH AFTER 24 HOURS 02/07/20 19:50 Peripheral/Venous Blood Culture - Preliminary NO GROWTH AFTER 24 HOURS Iqbal/IV: IV Catheter Type [Right Hand] INT / Saline Lock Active Medications - Current Medications Current Medications: Generic Name Dose Route Start Last Admin Trade Name Freq PRN Reason Stop Dose Admin Acetaminophen 650 mg 02/07/20 22:21 Tylenol PO Q4H PRN Pain MILD(1-3)/Fever >100.5/MCCRARY Amoxicillin/Clavulanate Potassium 1 each 02/08/20 16:00 02/08/20 18:03 Augmentin 875 Mg PO 02/12/20 15:59 1 each Q12HR AMELIE Administration Dextrose 50 ml 02/07/20 22:21 D50w (25gm) Syringe IV Q30MIN PRN Hypoglycemia Protocol Enoxaparin Sodium 40 mg 02/08/20 22:00 Enoxaparin SUB-Q QDAY@2200 AMELIE Sodium Chloride 1,000 mls @ 125 mls/hr 02/07/20 22:30 02/08/20 13:18 Nacl 0.9% 1000 Ml IV 125 mls/hr DIRECT AMELIE Administration Insulin Human Lispro 0 unit 02/08/20 07:30 02/08/20 18:03 Humalog SUB-Q 3 unit ACHS AMELIE Administration Protocol Magnesium Hydroxide 30 ml 02/07/20 22:21 Milk Of Magnesia PO Q4H PRN Constipation Ondansetron HCl 4 mg 02/07/20 22:21 Zofran IV Q8H PRN Nausea And Vomiting Sodium Chloride 10 ml 02/08/20 10:00 02/08/20 09:35 Sodium Chloride Flush Syringe 10 Ml IV 10 ml BID AMELIE Administration Sodium Chloride 10 ml 02/07/20 22:21 Sodium Chloride Flush Syringe 10 Ml IV PRN PRN LINE FLUSH Nutrition/Malnutrition Assess - Dietary Evaluation Nutrition/Malnutrition Findings: Nutrition Notes Start: 02/08/20 16:26 Freq: Status: Active Protocol: Document 02/08/20 16:26 OLGA (Rec: 02/08/20 16:31 MECAM [id number] [email or web address]) Nutrition Notes Need for 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 Pt from [place]; not appropriate for diet education at this time. Scheduled for COVID-19 test today. Burn Absent Trauma Absent Difficulty In Chewing Minimum of two criteria No #1 Nutrition Diagnosis Predicted suboptimal energy intake Etiology AMS, possible COVID-19 infection As Evidenced by Signs and Symptoms pt admitted with AMS and generalized weakness Is patient on ventilator? No Is Patient Ambulatory and/or Out of Bed No REE-([facility]-confined to bed) [phone] Calculation Used for Recommendations [facility] Additional Notes Pro needs 1-1.2g/k-81g/ day Fluid needs 1ml/kcal Nutrition Intervention Change Diet Order: Add mech soft restriction to current diet order Goal #1 PO intake to meet at least 75% energy and pro needs Anticipated Discharge Needs: None identified at this time Follow-Up By: 02/11/20 Additional Comments F/U: intakes
[2020-02-08] MEDS ORDERED: ENOXAPARIN 40 MG/0.4 ML INJ SUB-Q SCH (22:00)
[2020-02-09] MEDS: SODIUM CHLORIDE 0.9% 1000 ML 1,000 ML IV SCH (06:51)
[2020-02-09] MEDS: INSULIN LISPRO 100 UNIT/ML VIAL 3 mL SUB-Q SCH ×3 (09:55→17:14)
[2020-02-09] MEDS: AMOXICILLIN/K CLAV 875/125MG TAB PO SCH (09:55)
[2020-02-09 13:36] VITALS: BP 169/81
--- NOTE | 2020-02-09 13:50 | Discharge Summary ---
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 Patient admitted to medical floor and initiated on pneumonia protocol. Patient was also suspected of COVID-19 infection. Coronavirus PCR was negative. Patient convalesced well during hospital course with improvement in symptoms with therapy. Patient responded to therapy and is medically optimized on the date of discharge. Patient seen and evaluated prior to discharge but no significant new physical exam findings prior to discharge. Patient medically optimized and back to usual state of health. Patient discharged to [facility] under the care of the medical technologist blood bank. Patient to be reevaluated by [facility] medical staff within 24 hours upon arrival. 35 minutes dedicated to patient discharge and coordination of care. Patient to resume all prehospital follow-up appointments and age- appropriate screening test. Disposition: /-03 SNF [facility] CERT - Discharge Diagnoses (1) Pneumonia Status: Acute (2) Debility Status: Acute (3) HTN (hypertension) Status: Chronic Qualifiers: Hypertension type: essential hypertension Qualified Code(s): I10 - Essential (primary) hypertension Core Measure Documentation - Palliative Care Palliative Care/ Comfort Measures: Not Applicable - Core Measures Any of the following diagnoses?: none Exam - Constitutional Vitals: Temp Pulse Resp BP Pulse Ox 98.5 F 85 19 169/81 96 02/09/20 12:27 02/09/20 12:27 02/09/20 12:27 02/09/20 12:27 02/09/20 12:27 General appearance: Present: no acute distress, well-nourished - EENT Eyes: Present: PERRL ENT: hearing intact, clear oral mucosa - Neck Neck: Present: supple, normal ROM - Respiratory Respiratory effort: normal Respiratory: bilateral: CTA - Cardiovascular Heart Sounds: Present: S1 & S2. Absent: rub, click - Extremities Extremities: pulses symmetrical, No edema Peripheral Pulses: within normal limits - Abdominal General gastrointestinal: Present: soft, non-tender, non-distended, normal bowel sounds Female genitourinary: Present: normal - Integumentary Integumentary: Present: clear, warm, dry - Musculoskeletal Musculoskeletal: gait normal, strength equal bilaterally - Psychiatric Psychiatric: appropriate mood/affect, intact judgment & insight - Neurologic Neurologic: CNII-XII intact, moves all extremities Plan Activity: advance as tolerated Special Instructions: record daily weights, record daily BP diary Follow up with: PRIMARY CARE, [Primary Care Provider] - 3-5 Days Prescriptions: Amoxicillin/Potassium Clav [Augmentin 875-125 Tablet] 1 each PO BID #10 tablet
[2020-02-09] MEDS ORDERED: hydrALAZINE 20 MG/1 ML INJ IM ONE (17:18)
[2020-02-09] MEDS ORDERED: amLODIPine 10 MG TAB PO ONE (17:30)
== END 2020-02-09 17:56 | DRG 177 ==
LOC: ED 15:05 → 3A 21:27 → OBSVTOIN 02-08 10:54
PROVIDERS: ADMIT Internal Medicine Geriatric Medicine; ATTEND Internal Medicine
DX: J69.0 Pneumonitis due to inhalation of food and vomit (principal); G93.41 Metabolic encephalopathy; I10 Essential (primary) hypertension; F20.9 Schizophrenia, unspecified; F17.200 Nicotine dependence, unspecified, uncomplicated; D47.3 Essential (hemorrhagic) thrombocythemia; D72.829 Elevated white blood cell count, unspecified; Z20.828 Contact with and (suspected) exposure to other viral communicable diseases; E11.65 Type 2 diabetes mellitus with hyperglycemia; Z79.82 Long term (current) use of aspirin; Z86.73 Personal history of transient ischemic attack (TIA), and cerebral infarction without residual deficits; Z91.018 Allergy to other foods; Z79.899 Other long term (current) drug therapy
CPT/HCPCS: 36415; 71045; 74177; 80048; 80076; 80307; 81001; 82728; 82947; 82962; 83615; 83735; 84145; 84484; 85007; 85025; 85379; 85610; 86140; 87040; 87641; 93005; 96361; 96365; 96375; 99406; G0378; J1650; J1956; J2543; J7030; Q9967; U0003-CS